=== PATIENT | male | born 1960 | race Caucasian/White ===

== ENCOUNTER 2017-02-28 18:51 | Inpatient (IN) | payer MEDICAID ==
[~2017-02-28] VITALS: Ht 182.9 cm; Wt 166.7 kg
[~2017-02-28 18:51] MED LIST: ATAZ300C; BACL10TA; BENA10TA9; EMTRTAB7; GABA600T; IBUP800T24; RITO100T; SULF-92; VALA500T33
[2017-02-28] MEDS ORDERED: MIDAZOLAM DRIP 50 mg/50mL 50 ML IV ONE ×2 (19:18→22:58)
[2017-02-28] MEDS ORDERED: ETOMIDATE (2MG/ML) 20ML VIAL IV ONE (19:18)
[2017-02-28] MEDS ORDERED: SUCCINYLCHOLINE CHLORIDE 20 MG/ML 10ML VIAL IV ONE (19:18)
[2017-02-28] MEDS: MIDAZOLAM DRIP 50 mg/50mL 50 ML IV SCH ×2 (19:38→23:21)
[2017-02-28] MEDS ORDERED: SODIUM CHLORIDE 0.9% 1,000 ML IV ONE ×2 (19:42→23:00)
[2017-02-28] MEDS ORDERED: InsuLIN R (HUMAN) 100 UNITS in SODIUM CHL 0.9% 99 ML IV SCH (19:48)
[2017-02-28] MEDS ORDERED: cefTRIAXone 1GM/10ml IVPUSH 10 ML IV ONE ×2 (20:00→21:00)
[2017-02-28] MEDS ORDERED: DEXTROSE (50%) 50ML SYRG IV PRN (20:00)
[2017-02-28 20:28] LABS: Hematocrit 39.4 % (41.0-53.0); Hemoglobin 13.2 g/dL (13.5-17.5); Mean Corpuscular Hgb Conc. 33.6 g/dL (32.0-36.0); Red Cell Distribution Width 15.1 % (11.8-14.3)
[2017-02-28 20:35] LABS: Mean Corpuscular Hemoglobin 30.9 pg (28.0-32.0); Mean Corpuscular Volume 91.9 fL (80.0-100.0); Platelet Count (auto) 138 10^3/uL (140-450); Red Blood Cells 4.28 10^6/uL (4.5-5.90)
[2017-02-28 20:55] LABS: BUN/Creatinine Ratio 22.8; Calcium 8.1 mg/dL (8.5-10.1); Magnesium 2.7 mg/dL (1.6-2.6); Potassium 4.8 mmol/L (3.5-5.1)
[2017-02-28 20:58] LABS: INR 0.95 (0.9-1.15); Prothrombin Time 10.3 sec (9.37-12.3)
[2017-02-28 21:00] LABS: Albumin 1.9 g/dL (3.4-5.0); Bilirubin, Total 4.6 mg/dL (0.2-1.0); Total Protein 7.3 g/dL (6.4-8.2)
[2017-02-28] MEDS ORDERED: IBUPROFEN 100MG/5ML ORAL SUSP 100 MG/5 ML UD GT ONE (21:00)
[2017-02-28] MEDS ORDERED: ACETAMINOPHEN 650 mg PER 20 mL UD PO ONE (21:00)
[2017-02-28 21:16] LABS: Basophils % (manual) 0 (0.0-2.0); Blast Cells 0; Eosinophils % (manual) 0 (0-7); Promyelocytes % 0; Reactive Lymphocytes 0
[2017-02-28 21:24] LABS: Lactic Acid w/Reflex 3.5 mmol/L (0.4-2.0)
[2017-02-28] MEDS: ACCU-CHEK COMFORT CURVE STRIP VI SCH ×2 (21:46→22:30)
[2017-02-28 21:52] LABS: Band Neutrophils % (manual) 34; Lymphocytes % (manual) 7 (10.0-50.0); Monocytes % (manual) 8 (0-12)
[2017-02-28 21:53] LABS: Metamyelocytes % 2; Myelocytes % 0
[2017-02-28 22:30] VITALS: BP 112/59
[2017-02-28] MEDS ORDERED: NOREPINEPHRINE 8 MG/250ML KIT 250 ML IV ONE (22:33)
[2017-02-28] MEDS: NOREPINEPHRINE 8 MG/250ML KIT 250 ML IV SCH (22:43)
[2017-02-28] MEDS ORDERED: VANCOMYCIN 1GM/250ML 250 ML IV ONE (23:00)
[2017-02-28 23:12] LABS: Amphetamine Screen, Urine NEGATIVE (NEGATIVE); Barbiturate Scree,Urine NEGATIVE (NEGATIVE); Benzodiazephine Screen, Urine NEGATIVE (NEGATIVE); Cannabinoid Screen, Urine NEGATIVE (NEGATIVE); Cocaine Screen, Urine POSITIVE (NEGATIVE); Opiate Scree,Urine NEGATIVE (NEGATIVE); Phencyclidine Screen, Urine NEGATIVE (NEGATIVE)
[2017-02-28 23:18] VITALS: BP 98/59
[2017-02-28 23:40] LABS: Urine Blood Trace /uL (Negative); Urine Specific Gravity 1.023 (1.001-1.035)
[2017-02-28 23:41] LABS: Urine WBC 2 /hpf (0 - 3)
[2017-02-28 23:42] LABS: Urine Bacteria MODERATE /hpf (None Seen)
[2017-02-28 23:44] LABS: Urine Amorphous Sediment Moderate /hpf
[2017-03-01] VITALS (55 sets, daily range): BP systolic 80–153; BP diastolic 22–99
[2017-03-01] MEDS ORDERED: diphenhdrAMINE HCL 50 MG/1 ML VL IV ONE (00:30)
[2017-03-01] MEDS ORDERED: methylPREDNISolone SOD SUCC 125 MG/2 ML VL IV ONE (00:30)
[2017-03-01] MEDS ORDERED: FUROSEMIDE 40 MG/4 ML VIAL IV ONE (02:45)
[2017-03-01 03:31] LABS: Hematocrit 41.4 % (41.0-53.0); Hemoglobin 13.7 g/dL (13.5-17.5); Mean Corpuscular Hemoglobin 30.7 pg (28.0-32.0); Mean Corpuscular Volume 92.9 fL (80.0-100.0); Platelet Count (auto) 141 10^3/uL (140-450); Red Blood Cells 4.46 10^6/uL (4.5-5.90); Red Cell Distribution Width 15.3 % (11.8-14.3)
[2017-03-01 03:42] LABS: Blast Cells 0; Eosinophils % (manual) 0 (0-7); Promyelocytes % 0; Reactive Lymphocytes 0
[2017-03-01 03:48] LABS: BUN/Creatinine Ratio 20.5; Calcium 8.2 mg/dL (8.5-10.1); Potassium 3.3 mmol/L (3.5-5.1)
[2017-03-01 04:11] LABS: Band Neutrophils % (manual) 43; Basophils % (manual) 1 (0.0-2.0); Lymphocytes % (manual) 3 (10.0-50.0); Metamyelocytes % 9; Monocytes % (manual) 1 (0-12); Myelocytes % 1
[2017-03-01] MEDS ORDERED: SUCCINYLCHOLINE CHLORIDE 20 MG/ML 10ML VIAL IV ONE (04:30)
[2017-03-01] MEDS ORDERED: ETOMIDATE (2MG/ML) 20ML VIAL IV ONE (04:30)
[2017-03-01] MEDS ORDERED: VANCOMYCIN PER PHARMACY 0 MG IV SCH (05:00)
[2017-03-01] MEDS ORDERED: POTASSIUM CHL 10% (20 MEQ/15ML) 15ml ORAL SOLN PO ONE ×2 (06:00→10:15)
[2017-03-01] MEDS: MIDAZOLAM DRIP 50 mg/50mL 50 ML IV SCH ×3 (07:01→22:00)
[2017-03-01 07:29] LABS: Lactic Acid w/Reflex 2.3 mmol/L (0.4-2.0)
[2017-03-01] MEDS: PANTOPRAZOLE 40 MG/10 ML VIAL IV SCH (10:00)
[2017-03-01] MEDS ORDERED: SODIUM CHLORIDE 0.9% 1,000 ML IV ONE (10:15)
[2017-03-01] MEDS: SODIUM CHLORIDE 0.9% 1,000 ML IV SCH ×2 (11:15→21:15)
[2017-03-01] MEDS: THIAMINE INJ 100 MG, MULTIPLE VITAMIN 10 ML, FOLIC ACID 1 MG, MAGNESIUM SULF SDV 50% 8 ... IV SCH ×5 (12:00)
[2017-03-01] MEDS ORDERED: OPTISON 3ml Vial for INJ IV ONE (13:35)
[2017-03-01] MEDS: POTASSIUM CHL 20MEQ/50ML 50 ML IV SCH ×2 (16:30→20:30)
[2017-03-01 16:38] LABS: Creatinine, Urine 266 mg/dL (30.0-125.0); Sodium Urine 13 mmol/L (40-220)
[2017-03-01] MEDS: ALBUMIN 25% 100 ML IV SCH (17:00)
[2017-03-01] MEDS: cefTRIAXone 1GM/10ml IVPUSH 10 ML IV SCH (21:00)
[2017-03-02] VITALS (92 sets, daily range): BP systolic 91–141; BP diastolic 46–90
[2017-03-02] MEDS ORDERED: VANCOMYCIN 1GM/250ML 250 ML IV SCH
[2017-03-02] MEDS ORDERED: PROPOFOL 100 ML IV ONE ×2 (00:27→05:47)
[2017-03-02] MEDS: ALBUMIN 25% 100 ML IV SCH ×3 (01:00→16:45)
[2017-03-02] MEDS: MIDAZOLAM DRIP 50 mg/50mL 50 ML IV SCH ×2 (01:30→12:07)
[2017-03-02 03:21] LABS: Hematocrit 37.6 % (41.0-53.0); Hemoglobin 12.5 g/dL (13.5-17.5); Mean Corpuscular Hemoglobin 30.3 pg (28.0-32.0); Mean Corpuscular Hgb Conc. 33.2 g/dL (32.0-36.0); Mean Corpuscular Volume 91.1 fL (80.0-100.0); Platelet Count (auto) 143 10^3/uL (140-450); Red Blood Cells 4.13 10^6/uL (4.5-5.90); Red Cell Distribution Width 15.6 % (11.8-14.3); White Blood Cell 14.7 10^3/uL (4.4-10.8)
[2017-03-02 03:33] LABS: Basophils % (manual) 0 (0.0-2.0); Blast Cells 0; Eosinophils % (manual) 0 (0-7); Myelocytes % 0; Promyelocytes % 0; Reactive Lymphocytes 0
[2017-03-02 03:44] LABS: Albumin 1.9 g/dL (3.4-5.0); BUN/Creatinine Ratio 25.6; Bilirubin, Total 2.3 mg/dL (0.2-1.0); Calcium 8.1 mg/dL (8.5-10.1); Phosphorus 4.3 mg/dL (2.5-4.90); Potassium 3.9 mmol/L (3.5-5.1); Total Protein 6.6 g/dL (6.4-8.2); Uric Acid 10.6 mg/dL (3.5-7.2)
[2017-03-02 04:35] LABS: Band Neutrophils % (manual) 13; Lymphocytes % (manual) 6 (10.0-50.0); Metamyelocytes % 1; Monocytes % (manual) 1 (0-12)
[2017-03-02 05:10] LABS: Immunoglobulin G, Serum 1338 mg/dL (700-1600); RPR Non Reactive (Non Reactive)
[2017-03-02] MEDS: PROPOFOL 100 ML IV SCH ×3 (06:00→09:31)
[2017-03-02] MEDS: PANTOPRAZOLE 40 MG/10 ML VIAL IV SCH (09:32)
[2017-03-02] MEDS: SODIUM CHLORIDE 0.9% 1,000 ML IV SCH ×2 (09:32→17:15)
[2017-03-02] MEDS: NOREPINEPHRINE 8 MG/250ML KIT 250 ML IV SCH ×2 (09:50→22:45)
[2017-03-02] MEDS ORDERED: LINEZOLID 600MG/300ML 300 ML IV ONE (10:45)
[2017-03-02] MEDS: THIAMINE INJ 100 MG, MULTIPLE VITAMIN 10 ML, FOLIC ACID 1 MG, MAGNESIUM SULF SDV 50% 8 ... IV SCH ×5 (11:32)
[2017-03-02] MEDS ORDERED: LIDOCAINE 1% HCL (LOCAL ANESTH.) INJ 20ML MDV ID ONE (15:15)
[2017-03-02] MEDS: DOPamine 1600MCG/ML D5W 250 ML IV SCH (15:56)
[2017-03-02] MEDS ORDERED: FUROSEMIDE 40 MG/4 ML VIAL ONE (17:00)
[2017-03-02] MEDS ORDERED: FUROSEMIDE 40 MG/4 ML VIAL IV ONE (17:15)
[2017-03-02] MEDS: cefTRIAXone 1GM/10ml IVPUSH 10 ML IV SCH (22:57)
[2017-03-02] MEDS: SODIUM CHLOR 0.9% PF (SALINE LOCK) 10ML VIAL IV SCH (22:58)
[2017-03-02] MEDS: LINEZOLID 600MG/300ML 300 ML IV SCH (22:58)
[2017-03-03] VITALS (97 sets, daily range): BP systolic 88–131; BP diastolic 43–79
[2017-03-03] MEDS: ALBUMIN 25% 100 ML IV SCH ×2 (01:00→11:57)
[2017-03-03 04:10] LABS: Hematocrit 33.9 % (41.0-53.0); Hemoglobin 11.5 g/dL (13.5-17.5); Mean Corpuscular Hemoglobin 31.2 pg (28.0-32.0); Mean Corpuscular Hgb Conc. 33.9 g/dL (32.0-36.0); Mean Corpuscular Volume 92.1 fL (80.0-100.0); Platelet Count (auto) 130 10^3/uL (140-450); Red Blood Cells 3.68 10^6/uL (4.5-5.90); Red Cell Distribution Width 16.2 % (11.8-14.3); White Blood Cell 16.2 10^3/uL (4.4-10.8)
[2017-03-03 04:24] LABS: Basophils % (manual) 0 (0.0-2.0); Blast Cells 0; Eosinophils % (manual) 0 (0-7); Metamyelocytes % 0; Myelocytes % 0; Promyelocytes % 0; Reactive Lymphocytes 0
[2017-03-03 04:28] LABS: Albumin 2.8 g/dL (3.4-5.0); BUN/Creatinine Ratio 31.1; Bilirubin, Total 1.6 mg/dL (0.2-1.0); Calcium 7.8 mg/dL (8.5-10.1); Potassium 3.8 mmol/L (3.5-5.1)
[2017-03-03 05:20] LABS: Band Neutrophils % (manual) 10; Lymphocytes % (manual) 2 (10.0-50.0); Monocytes % (manual) 2 (0-12)
[2017-03-03] MEDS: LINEZOLID 600MG/300ML 300 ML IV SCH ×2 (11:58→22:00)
[2017-03-03] MEDS: SODIUM CHLOR 0.9% PF (SALINE LOCK) 10ML VIAL IV SCH ×2 (11:58→22:00)
[2017-03-03] MEDS: PANTOPRAZOLE 40 MG/10 ML VIAL IV SCH (11:58)
[2017-03-03] MEDS: THIAMINE INJ 100 MG, MULTIPLE VITAMIN 10 ML, FOLIC ACID 1 MG, MAGNESIUM SULF SDV 50% 8 ... IV SCH ×5 (12:38)
[2017-03-03] MEDS: SODIUM BICARBONATE 50ML VIAL 50 ML in D5W/SOD CHL 0.45% 1,000 ML IV SCH ×2 (12:43→19:39)
[2017-03-03] MEDS: POTASSIUM CHL 20MEQ/50ML 50 ML IV SCH ×2 (12:44→17:16)
[2017-03-03] MEDS: PROPOFOL 100 ML IV SCH ×2 (16:00→22:00)
[2017-03-03] MEDS: cefTRIAXone 1GM/10ml IVPUSH 10 ML IV SCH (20:51)
[2017-03-03] MEDS: NOREPINEPHRINE 8 MG/250ML KIT 250 ML IV SCH (22:45)
[2017-03-03] MEDS: DOPamine 1600MCG/ML D5W 250 ML IV SCH (23:17)
[2017-03-04] VITALS (105 sets, daily range): BP systolic 89–146; BP diastolic 49–88
[2017-03-04] MEDS: SODIUM BICARBONATE 50ML VIAL 50 ML in D5W/SOD CHL 0.45% 1,000 ML IV SCH ×3 (00:15→22:38)
[2017-03-04] MEDS: PROPOFOL 100 ML IV SCH ×5 (01:19→15:43)
[2017-03-04 04:03] LABS: Hematocrit 35.6 % (41.0-53.0); Hemoglobin 11.9 g/dL (13.5-17.5); Mean Corpuscular Hemoglobin 30.5 pg (28.0-32.0); Mean Corpuscular Hgb Conc. 33.3 g/dL (32.0-36.0); Mean Corpuscular Volume 91.5 fL (80.0-100.0); Platelet Count (auto) 116 10^3/uL (140-450); Red Blood Cells 3.89 10^6/uL (4.5-5.90); Red Cell Distribution Width 15.5 % (11.8-14.3); White Blood Cell 12.4 10^3/uL (4.4-10.8)
[2017-03-04 04:08] LABS: Basophils % (manual) 0 (0.0-2.0); Blast Cells 0; Eosinophils % (manual) 0 (0-7); Monocytes % (manual) 0 (0-12); Promyelocytes % 0; Reactive Lymphocytes 0
[2017-03-04 04:26] LABS: Albumin 2.5 g/dL (3.4-5.0); BUN/Creatinine Ratio 37.3; Bilirubin, Total 1.4 mg/dL (0.2-1.0); Calcium 7.7 mg/dL (8.5-10.1); Potassium 3.4 mmol/L (3.5-5.1); Total Protein 6.4 g/dL (6.4-8.2)
[2017-03-04 04:49] LABS: Band Neutrophils % (manual) 8; Lymphocytes % (manual) 5 (10.0-50.0); Metamyelocytes % 3; Myelocytes % 3
[2017-03-04] MEDS: DOPamine 1600MCG/ML D5W 250 ML IV SCH (06:36)
[2017-03-04] MEDS: MIDAZOLAM DRIP 50 mg/50mL 50 ML IV SCH ×3 (06:36→15:43)
[2017-03-04 09:35] LABS: Hepatitis B Surface Antigen Negative (Negative)
[2017-03-04] MEDS: LINEZOLID 600MG/300ML 300 ML IV SCH ×2 (09:58→22:38)
[2017-03-04] MEDS: SODIUM CHLOR 0.9% PF (SALINE LOCK) 10ML VIAL IV SCH ×2 (09:58→22:42)
[2017-03-04] MEDS: PANTOPRAZOLE 40 MG/10 ML VIAL IV SCH (09:58)
[2017-03-04 11:10] LABS: Hepatitis C Antibody Positive (Negative)
[2017-03-04] MEDS: THIAMINE INJ 100 MG, MULTIPLE VITAMIN 10 ML, FOLIC ACID 1 MG, MAGNESIUM SULF SDV 50% 8 ... IV SCH ×5 (11:55)
[2017-03-04] MEDS ORDERED: POTASSIUM CHL 20MEQ/50ML 50 ML IV ONE (17:00)
[2017-03-04] MEDS: ALBUTEROL SULF 2.5 MG/0.5ML(0.5%) NEB SOLN NEB SCH (21:57)
[2017-03-04] MEDS: IPRATROPIUM BROM 0.5 MG/2.5ML INH SOL NEB SCH (21:57)
[2017-03-04] MEDS: cefTRIAXone 1GM/10ml IVPUSH 10 ML IV SCH (22:16)
[2017-03-04] MEDS: PRO-STAT 64 30ML GT SCH (22:41)
[2017-03-04] MEDS: NOREPINEPHRINE 8 MG/250ML KIT 250 ML IV SCH (22:45)
[2017-03-05] VITALS (102 sets, daily range): BP systolic 85–126; BP diastolic 45–73
[2017-03-05] MEDS: IPRATROPIUM BROM 0.5 MG/2.5ML INH SOL NEB SCH ×6 (02:18→22:36)
[2017-03-05] MEDS: ALBUTEROL SULF 2.5 MG/0.5ML(0.5%) NEB SOLN NEB SCH ×6 (02:18→22:36)
[2017-03-05] MEDS: DOPamine 1600MCG/ML D5W 250 ML IV SCH (02:54)
[2017-03-05 04:20] LABS: Hematocrit 30.9 % (41.0-53.0); Hemoglobin 10.2 g/dL (13.5-17.5); Mean Corpuscular Hemoglobin 31.3 pg (28.0-32.0); Mean Corpuscular Volume 94.9 fL (80.0-100.0); Platelet Count (auto) 103 10^3/uL (140-450); Red Blood Cells 3.25 10^6/uL (4.5-5.90)
[2017-03-05 04:58] LABS: Basophils % (manual) 0 (0.0-2.0); Blast Cells 0; Eosinophils % (manual) 0 (0-7); Promyelocytes % 0; Reactive Lymphocytes 0
[2017-03-05 06:18] LABS: Potassium 3.2 mmol/L (3.5-5.1)
[2017-03-05 06:19] LABS: BUN/Creatinine Ratio 40.4; Calcium 6.9 mg/dL (8.5-10.1); Total Protein 5.7 g/dL (6.4-8.2)
[2017-03-05 06:52] LABS: Band Neutrophils % (manual) 16; Lymphocytes % (manual) 1 (10.0-50.0); Metamyelocytes % 7; Monocytes % (manual) 3 (0-12); Myelocytes % 1
[2017-03-05] MEDS ORDERED: DEXTROSE (50%) 50ML SYRG IV PRN (07:00)
[2017-03-05] MEDS ORDERED: POTASSIUM CHLORIDE 40 MEQ, LIDOCAINE 1% (LOCAL ANESTH.) 4 ML in SODIUM CHL 0.9% 100 ML IV ONE (09:00)
[2017-03-05] MEDS: SODIUM BICARBONATE 50ML VIAL 50 ML in SOD CHL 0.45% 1,000 ML IV SCH ×2 (09:18→16:46)
[2017-03-05] MEDS: PANTOPRAZOLE 40 MG/10 ML VIAL IV SCH (09:47)
[2017-03-05] MEDS: MIDAZOLAM DRIP 50 mg/50mL 50 ML IV SCH ×2 (09:48→20:28)
[2017-03-05] MEDS: PROPOFOL 100 ML IV SCH ×3 (09:48→23:21)
[2017-03-05] MEDS: CLINDAMYCIN 300MG IV 50 ML IV SCH ×2 (09:48→16:45)
[2017-03-05] MEDS ORDERED: DULO60CA PO (09:57)
[2017-03-05] MEDS ORDERED: ASPI-492 PO (09:57)
[2017-03-05] MEDS ORDERED: BENA40TA7 PO (09:57)
[2017-03-05] MEDS ORDERED: ZOLP10TA6 PO (09:57)
[2017-03-05] MEDS ORDERED: CYCL1TAB18 PO (09:57)
[2017-03-05] MEDS ORDERED: TRAZ100T2 PO (09:57)
[2017-03-05] MEDS ORDERED: PREG150C PO (09:57)
[2017-03-05] MEDS ORDERED: MELO1TAB73 PO (09:57)
[2017-03-05] MEDS ORDERED: QUET400T12 PO (09:57)
[2017-03-05] MEDS: PRO-STAT 64 30ML GT SCH ×2 (10:00→22:46)
[2017-03-05] MEDS: SODIUM CHLOR 0.9% PF (SALINE LOCK) 10ML VIAL IV SCH ×2 (10:00→22:46)
[2017-03-05] MEDS ORDERED: CALCIUM GLUC 4.65meq/50ml D5AE 50 ML IV ONE ×2 (11:00)
[2017-03-05] MEDS: InsuLIN REG 1unit/0.01ml Soln (100units/ml) SC SCH ×2 (11:49→17:46)
[2017-03-05] MEDS: ACCU-CHEK COMFORT CURVE STRIP VI SCH ×2 (11:49→17:46)
[2017-03-05] MEDS: THIAMINE INJ 100 MG, MULTIPLE VITAMIN 10 ML, FOLIC ACID 1 MG, MAGNESIUM SULF SDV 50% 8 ... IV SCH ×5 (12:15)
[2017-03-05] MEDS: cefTRIAXone 1GM/10ml IVPUSH 10 ML IV SCH (21:46)
[2017-03-05] MEDS: NOREPINEPHRINE 8 MG/250ML KIT 250 ML IV SCH (22:45)
[2017-03-06] VITALS (90 sets, daily range): BP systolic 93–127; BP diastolic 47–79
[2017-03-06] MEDS: CLINDAMYCIN 300MG IV 50 ML IV SCH ×3 (00:21→17:15)
[2017-03-06] MEDS: ACCU-CHEK COMFORT CURVE STRIP VI SCH ×4 (00:22→17:36)
[2017-03-06] MEDS: MIDAZOLAM DRIP 50 mg/50mL 50 ML IV SCH ×4 (00:23→21:00)
[2017-03-06] MEDS: PROPOFOL 100 ML IV SCH ×7 (01:29→19:23)
[2017-03-06] MEDS: SODIUM BICARBONATE 50ML VIAL 50 ML in SOD CHL 0.45% 1,000 ML IV SCH ×2 (01:53→10:12)
[2017-03-06] MEDS: ALBUTEROL SULF 2.5 MG/0.5ML(0.5%) NEB SOLN NEB SCH ×6 (02:00→22:05)
[2017-03-06] MEDS: IPRATROPIUM BROM 0.5 MG/2.5ML INH SOL NEB SCH ×6 (02:00→22:05)
[2017-03-06] MEDS: DOPamine 1600MCG/ML D5W 250 ML IV SCH ×2 (03:55→21:00)
[2017-03-06] MEDS: InsuLIN REG 1unit/0.01ml Soln (100units/ml) SC SCH ×4 (06:00→17:36)
[2017-03-06 06:18] LABS: Hematocrit 30.9 % (41.0-53.0); Mean Corpuscular Hemoglobin 33.4 pg (28.0-32.0); Mean Corpuscular Hgb Conc. 35.6 g/dL (32.0-36.0); Mean Corpuscular Volume 93.9 fL (80.0-100.0); Platelet Count (auto) 127 10^3/uL (140-450); Red Blood Cells 3.29 10^6/uL (4.5-5.90)
[2017-03-06 06:22] LABS: Basophils % (manual) 0 (0.0-2.0); Blast Cells 0; Eosinophils % (manual) 0 (0-7); Metamyelocytes % 0; Myelocytes % 0; Promyelocytes % 0; Reactive Lymphocytes 0
[2017-03-06 06:37] LABS: Albumin 1.6 g/dL (3.4-5.0); BUN/Creatinine Ratio 43.6; Bilirubin, Total 1.8 mg/dL (0.2-1.0); Calcium 6.4 mg/dL (8.5-10.1); Potassium 3.9 mmol/L (3.5-5.1)
[2017-03-06 06:47] LABS: Total Protein 5.5 g/dL (6.4-8.2)
[2017-03-06 07:00] LABS: Band Neutrophils % (manual) 8; Lymphocytes % (manual) 1 (10.0-50.0); Monocytes % (manual) 1 (0-12)
[2017-03-06] MEDS: SODIUM CHLOR 0.9% PF (SALINE LOCK) 10ML VIAL IV SCH ×2 (09:36→22:00)
[2017-03-06] MEDS: PRO-STAT 64 30ML GT SCH ×2 (09:36→22:00)
[2017-03-06] MEDS: PANTOPRAZOLE 40 MG/10 ML VIAL IV SCH (09:36)
[2017-03-06] MEDS: THIAMINE INJ 100 MG, MULTIPLE VITAMIN 10 ML, FOLIC ACID 1 MG, MAGNESIUM SULF SDV 50% 8 ... IV SCH ×5 (13:40)
[2017-03-06] MEDS: FUROSEMIDE 20 MG/2 ML VIAL IV SCH (14:28)
[2017-03-06] MEDS: cefTRIAXone 1GM/10ml IVPUSH 10 ML IV SCH (21:00)
[2017-03-06] MEDS: NOREPINEPHRINE 8 MG/250ML KIT 250 ML IV SCH (22:45)
[2017-03-07] VITALS (81 sets, daily range): BP systolic 89–114; BP diastolic 5–70
[2017-03-07] MEDS: CLINDAMYCIN 300MG IV 50 ML IV SCH ×3 (01:26→17:12)
[2017-03-07] MEDS: PROPOFOL 100 ML IV SCH ×9 (01:27→23:45)
[2017-03-07] MEDS: ALBUTEROL SULF 2.5 MG/0.5ML(0.5%) NEB SOLN NEB SCH ×6 (01:42→22:16)
[2017-03-07] MEDS: IPRATROPIUM BROM 0.5 MG/2.5ML INH SOL NEB SCH ×6 (01:42→22:16)
[2017-03-07] MEDS: NOREPINEPHRINE 8 MG/250ML KIT 250 ML IV SCH ×2 (02:00→22:45)
[2017-03-07 05:04] LABS: Hematocrit 33.8 % (41.0-53.0); Hemoglobin 10.8 g/dL (13.5-17.5); Mean Corpuscular Hgb Conc. 31.9 g/dL (32.0-36.0); Mean Corpuscular Volume 94.3 fL (80.0-100.0); Platelet Count (auto) 142 10^3/uL (140-450); Red Blood Cells 3.58 10^6/uL (4.5-5.90); Red Cell Distribution Width 16.5 % (11.8-14.3); White Blood Cell 19.3 10^3/uL (4.4-10.8)
[2017-03-07 05:06] LABS: Basophils % (manual) 0 (0.0-2.0); Blast Cells 0; Metamyelocytes % 0; Myelocytes % 0; Promyelocytes % 0; Reactive Lymphocytes 0
[2017-03-07 05:08] LABS: Albumin 1.7 g/dL (3.4-5.0); Calcium 8.4 mg/dL (8.5-10.1); Potassium 4.1 mmol/L (3.5-5.1)
[2017-03-07 05:17] LABS: BUN/Creatinine Ratio 44.1; Bilirubin, Total 1.3 mg/dL (0.2-1.0); Total Protein 6.2 g/dL (6.4-8.2)
[2017-03-07] MEDS: ACCU-CHEK COMFORT CURVE STRIP VI SCH ×4 (06:00→17:54)
[2017-03-07] MEDS: InsuLIN REG 1unit/0.01ml Soln (100units/ml) SC SCH ×4 (06:00→17:54)
[2017-03-07 06:14] LABS: Band Neutrophils % (manual) 2; Eosinophils % (manual) 1 (0-7); Lymphocytes % (manual) 2 (10.0-50.0); Monocytes % (manual) 1 (0-12)
[2017-03-07] MEDS: MIDAZOLAM DRIP 50 mg/50mL 50 ML IV SCH ×6 (07:09→23:45)
[2017-03-07] MEDS: FUROSEMIDE 20 MG/2 ML VIAL IV SCH (09:50)
[2017-03-07] MEDS: PANTOPRAZOLE 40 MG/10 ML VIAL IV SCH (09:50)
[2017-03-07] MEDS: PRO-STAT 64 30ML GT SCH ×2 (09:51→22:00)
[2017-03-07] MEDS: SODIUM CHLOR 0.9% PF (SALINE LOCK) 10ML VIAL IV SCH ×2 (10:03→22:00)
[2017-03-07] MEDS ORDERED: SODIUM BICARBONATE 8.4 % INJ 50ML VIAL IV ONE (11:45)
[2017-03-07] MEDS: SODIUM BICARBONATE 650 MG TAB PO SCH ×2 (17:12→22:00)
[2017-03-07] MEDS: DOPamine 1600MCG/ML D5W 250 ML IV SCH (19:14)
[2017-03-07] MEDS: cefTRIAXone 1GM/10ml IVPUSH 10 ML IV SCH (20:54)
[2017-03-08] VITALS (107 sets, daily range): BP systolic 10–159; BP diastolic 47–99
[2017-03-08] MEDS: InsuLIN REG 1unit/0.01ml Soln (100units/ml) SC SCH ×4 (00:27→18:00)
[2017-03-08] MEDS: ACCU-CHEK COMFORT CURVE STRIP VI SCH ×4 (00:27→18:14)
[2017-03-08] MEDS: CLINDAMYCIN 300MG IV 50 ML IV SCH ×2 (01:16→09:19)
[2017-03-08] MEDS: ALBUTEROL SULF 2.5 MG/0.5ML(0.5%) NEB SOLN NEB SCH ×6 (02:05→22:17)
[2017-03-08] MEDS: IPRATROPIUM BROM 0.5 MG/2.5ML INH SOL NEB SCH ×6 (02:05→22:17)
[2017-03-08 05:28] LABS: Hematocrit 33.5 % (41.0-53.0); Mean Corpuscular Hemoglobin 30.5 pg (28.0-32.0); Mean Corpuscular Volume 92.6 fL (80.0-100.0); Platelet Count (auto) 197 10^3/uL (140-450); Red Blood Cells 3.62 10^6/uL (4.5-5.90); Red Cell Distribution Width 15.7 % (11.8-14.3); White Blood Cell 22.9 10^3/uL (4.4-10.8)
[2017-03-08 05:31] LABS: Albumin 1.7 g/dL (3.4-5.0); BUN/Creatinine Ratio 47.5; Bilirubin, Total 1.5 mg/dL (0.2-1.0); Calcium 8.3 mg/dL (8.5-10.1); Potassium 4.3 mmol/L (3.5-5.1)
[2017-03-08 05:48] LABS: Basophils % (manual) 0 (0.0-2.0); Blast Cells 0; Eosinophils % (manual) 0 (0-7); Metamyelocytes % 0; Monocytes % (manual) 0 (0-12); Promyelocytes % 0; Reactive Lymphocytes 0
[2017-03-08] MEDS: SODIUM BICARBONATE 650 MG TAB PO SCH ×4 (06:00→22:00)
[2017-03-08 06:19] LABS: Band Neutrophils % (manual) 13; Lymphocytes % (manual) 1 (10.0-50.0); Myelocytes % 1
[2017-03-08] MEDS: PANTOPRAZOLE 40 MG/10 ML VIAL IV SCH (09:18)
[2017-03-08] MEDS: FUROSEMIDE 20 MG/2 ML VIAL IV SCH (09:19)
[2017-03-08] MEDS: SODIUM CHLOR 0.9% PF (SALINE LOCK) 10ML VIAL IV SCH ×2 (09:19→22:00)
[2017-03-08] MEDS: PRO-STAT 64 30ML GT SCH ×2 (09:21→22:00)
[2017-03-08] MEDS: LINEZOLID 600MG/300ML 300 ML IV SCH (11:35)
[2017-03-08 11:47] LABS: Urine WBC None Seen /hpf (0 - 3)
[2017-03-08 12:01] LABS: Urine Amorphous Crystal FEW /hpf (None Seen); Urine Bacteria NONE SEEN /hpf (None Seen); Urine Blood Negative /uL (Negative); Urine Mucus FEW (None Seen); Urine Specific Gravity 1.013 (1.001-1.035)
[2017-03-08] MEDS: PROPOFOL 100 ML IV SCH ×4 (12:06→22:20)
[2017-03-08] MEDS: METOCLOPRAMIDE HCL 5MG/ml INJ 2ml VIAL IV SCH ×2 (14:51→22:00)
[2017-03-08] MEDS: DOPamine 1600MCG/ML D5W 250 ML IV SCH (14:51)
[2017-03-08] MEDS: MIDAZOLAM DRIP 50 mg/50mL 50 ML IV SCH ×2 (14:51→22:20)
[2017-03-08] MEDS: cefTRIAXone 1GM/10ml IVPUSH 10 ML IV SCH (20:40)
[2017-03-08] MEDS: NOREPINEPHRINE 8 MG/250ML KIT 250 ML IV SCH (22:45)
[2017-03-09] VITALS (107 sets, daily range): BP systolic 91–212; BP diastolic 46–75
[2017-03-09] MEDS: LINEZOLID 600MG/300ML 300 ML IV SCH ×2 (00:29→11:26)
[2017-03-09] MEDS: ACCU-CHEK COMFORT CURVE STRIP VI SCH ×4 (00:29→18:07)
[2017-03-09] MEDS: PROPOFOL 100 ML IV SCH ×7 (01:36→19:24)
[2017-03-09] MEDS: ALBUTEROL SULF 2.5 MG/0.5ML(0.5%) NEB SOLN NEB SCH ×6 (02:10→22:07)
[2017-03-09] MEDS: IPRATROPIUM BROM 0.5 MG/2.5ML INH SOL NEB SCH ×6 (02:10→22:07)
[2017-03-09] MEDS: MIDAZOLAM DRIP 50 mg/50mL 50 ML IV SCH ×3 (04:07→18:07)
[2017-03-09 04:23] LABS: Hematocrit 32.7 % (41.0-53.0); Hemoglobin 10.7 g/dL (13.5-17.5); Mean Corpuscular Hemoglobin 30.2 pg (28.0-32.0); Mean Corpuscular Hgb Conc. 32.6 g/dL (32.0-36.0); Mean Corpuscular Volume 92.5 fL (80.0-100.0); Platelet Count (auto) 206 10^3/uL (140-450); Red Blood Cells 3.54 10^6/uL (4.5-5.90); Red Cell Distribution Width 15.7 % (11.8-14.3); White Blood Cell 20.3 10^3/uL (4.4-10.8)
[2017-03-09 04:40] LABS: Basophils % (manual) 0 (0.0-2.0); Blast Cells 0; Myelocytes % 0; Promyelocytes % 0; Reactive Lymphocytes 0
[2017-03-09 04:49] LABS: Albumin 1.6 g/dL (3.4-5.0); BUN/Creatinine Ratio 46.9; Bilirubin, Total 1.3 mg/dL (0.2-1.0); Calcium 7.9 mg/dL (8.5-10.1); Potassium 4.2 mmol/L (3.5-5.1); Total Protein 6.9 g/dL (6.4-8.2)
[2017-03-09 05:06] LABS: Band Neutrophils % (manual) 5; Eosinophils % (manual) 1 (0-7); Lymphocytes % (manual) 3 (10.0-50.0); Metamyelocytes % 2; Monocytes % (manual) 1 (0-12)
[2017-03-09] MEDS: SODIUM BICARBONATE 650 MG TAB PO SCH ×4 (06:00→22:00)
[2017-03-09] MEDS: METOCLOPRAMIDE HCL 5MG/ml INJ 2ml VIAL IV SCH ×3 (06:00→22:00)
[2017-03-09] MEDS: InsuLIN REG 1unit/0.01ml Soln (100units/ml) SC SCH ×4 (06:00→18:00)
[2017-03-09] MEDS: DOPamine 1600MCG/ML D5W 250 ML IV SCH (07:46)
[2017-03-09] MEDS: PANTOPRAZOLE 40 MG/10 ML VIAL IV SCH (09:19)
[2017-03-09] MEDS: PRO-STAT 64 30ML GT SCH ×2 (09:20→22:00)
[2017-03-09] MEDS: SODIUM CHLOR 0.9% PF (SALINE LOCK) 10ML VIAL IV SCH ×2 (09:20→22:00)
[2017-03-09] MEDS: FUROSEMIDE INJECTION 250 MG in SODIUM CHL 0.9% 225 ML IV SCH (11:26)
[2017-03-09] MEDS: SPIRONOLACTONE 25 MG TAB PO SCH (11:26)
[2017-03-09 15:18] LABS: Potassium 3.6 mmol/L (3.5-5.1)
[2017-03-09] MEDS: cefTRIAXone 1GM/10ml IVPUSH 10 ML IV SCH (21:00)
[2017-03-09] MEDS: NOREPINEPHRINE 8 MG/250ML KIT 250 ML IV SCH (22:45)
[2017-03-10] VITALS (99 sets, daily range): BP systolic 83–154; BP diastolic 46–106
[2017-03-10] MEDS: ALBUTEROL SULF 2.5 MG/0.5ML(0.5%) NEB SOLN NEB SCH ×6 (02:24→22:45)
[2017-03-10] MEDS: IPRATROPIUM BROM 0.5 MG/2.5ML INH SOL NEB SCH ×6 (02:24→22:45)
[2017-03-10] MEDS: PROPOFOL 100 ML IV SCH ×8 (02:59→22:00)
[2017-03-10 03:45] LABS: Hematocrit 31.5 % (41.0-53.0); Hemoglobin 10.1 g/dL (13.5-17.5); Mean Corpuscular Hemoglobin 30.2 pg (28.0-32.0); Mean Corpuscular Hgb Conc. 32.1 g/dL (32.0-36.0); Platelet Count (auto) 185 10^3/uL (140-450); Red Blood Cells 3.35 10^6/uL (4.5-5.90); Red Cell Distribution Width 15.7 % (11.8-14.3)
[2017-03-10 03:57] LABS: Albumin 1.4 g/dL (3.4-5.0); Calcium 8.3 mg/dL (8.5-10.1); Potassium 3.9 mmol/L (3.5-5.1)
[2017-03-10 04:05] LABS: BUN/Creatinine Ratio 46.2; Bilirubin, Total 1.1 mg/dL (0.2-1.0); Total Protein 6.7 g/dL (6.4-8.2)
[2017-03-10 04:12] LABS: Basophils % (manual) 0 (0.0-2.0); Blast Cells 0; Eosinophils % (manual) 0 (0-7); Myelocytes % 0; Promyelocytes % 0; Reactive Lymphocytes 0
[2017-03-10 04:35] LABS: Band Neutrophils % (manual) 11; Lymphocytes % (manual) 2 (10.0-50.0); Metamyelocytes % 1; Monocytes % (manual) 1 (0-12)
[2017-03-10] MEDS: DOPamine 1600MCG/ML D5W 250 ML IV SCH (05:00)
[2017-03-10] MEDS: MIDAZOLAM DRIP 50 mg/50mL 50 ML IV SCH ×2 (05:00→17:36)
[2017-03-10] MEDS: SODIUM BICARBONATE 650 MG TAB PO SCH ×4 (06:00→22:00)
[2017-03-10] MEDS: METOCLOPRAMIDE HCL 5MG/ml INJ 2ml VIAL IV SCH ×3 (06:00→22:00)
[2017-03-10] MEDS: InsuLIN REG 1unit/0.01ml Soln (100units/ml) SC SCH ×4 (06:00→17:44)
[2017-03-10] MEDS: ACCU-CHEK COMFORT CURVE STRIP VI SCH ×4 (06:00→17:44)
[2017-03-10] MEDS: FUROSEMIDE INJECTION 250 MG in SODIUM CHL 0.9% 225 ML IV SCH (07:08)
[2017-03-10] MEDS ORDERED: SOD CHL 0.45% 1,000 ML IV SCH (09:15)
[2017-03-10] MEDS: HYDROCORTISONE SOD SUCC 100 MG/2ML INJ VIAL IV SCH ×3 (09:45→22:00)
[2017-03-10] MEDS: SODIUM CHLOR 0.9% PF (SALINE LOCK) 10ML VIAL IV SCH ×2 (10:00→22:00)
[2017-03-10] MEDS ORDERED: TPN PER PHARMACY 0 ML IV SCH (10:00)
[2017-03-10] MEDS: SPIRONOLACTONE 25 MG TAB PO SCH (10:00)
[2017-03-10] MEDS: PANTOPRAZOLE 40 MG/10 ML VIAL IV SCH (10:00)
[2017-03-10] MEDS: FREE WATER GT SCH ×4 (10:00→22:00)
[2017-03-10] MEDS: PRO-STAT 64 30ML GT SCH ×2 (10:00→22:00)
[2017-03-10 10:19] LABS: Magnesium 2.9 mg/dL (1.6-2.6); Phosphorus 8.5 mg/dL (2.5-4.90)
[2017-03-10] MEDS: LINEZOLID 600MG/300ML 300 ML IV SCH ×2 (12:00)
[2017-03-10] MEDS ORDERED: LIDOCAINE 1% HCL (LOCAL ANESTH.) INJ 20ML MDV ONE (13:37)
[2017-03-10] MEDS ORDERED: DOPamine 3200MCG/ML 250 ML IV SCH ×3 (16:15→16:45)
[2017-03-10] MEDS ORDERED: NOREPINEPHRINE BITARTRATE 16 MG in D5W 5% 250 ML IV SCH (16:27)
[2017-03-10] MEDS ORDERED: DEXTROSE (50%) 50ML SYRG IV SCH (18:00)
[2017-03-10] MEDS ORDERED: TPN PER PHARMACY IV NR ×6 (20:00)
[2017-03-10] MEDS: SODIUM CHL 0.9% IV SCH (20:54)
[2017-03-10] MEDS: FUROSEMIDE IV SCH (20:54)
[2017-03-10] MEDS: NOREPINEPHRINE BITARTRATE 32 MG in D5W 5% 218 ML IV SCH (21:00)
[2017-03-10] MEDS: cefTRIAXone 1GM/10ml IVPUSH 10 ML IV SCH (21:26)
[2017-03-11] VITALS (102 sets, daily range): BP systolic 79–187; BP diastolic 43–110
[2017-03-11] MEDS: LINEZOLID 600MG/300ML 300 ML IV SCH ×3 (00:10→23:54)
[2017-03-11] MEDS: ACCU-CHEK COMFORT CURVE STRIP VI SCH ×4 (00:10→17:59)
[2017-03-11] MEDS: IPRATROPIUM BROM 0.5 MG/2.5ML INH SOL NEB SCH ×6 (02:00→22:27)
[2017-03-11] MEDS: FREE WATER GT SCH ×2 (02:00→06:03)
[2017-03-11] MEDS: ALBUTEROL SULF 2.5 MG/0.5ML(0.5%) NEB SOLN NEB SCH ×6 (02:00→22:27)
[2017-03-11] MEDS: PROPOFOL 100 ML IV SCH ×9 (02:30→23:04)
[2017-03-11] MEDS: MIDAZOLAM DRIP 50 mg/50mL 50 ML IV SCH ×5 (03:42→21:20)
[2017-03-11 04:06] LABS: Basophils # (auto) 0.1 uL; Basophils % (auto) 0.5 % (0.0-2.0); Eosinophils # (auto) 0 uL; Eosinophils % (auto) 0.1 % (0.0-7.0); Hematocrit 33.8 % (41.0-53.0); Hemoglobin 10.8 g/dL (13.5-17.5); Lymphocytes # (auto) 0.5 uL; Lymphocytes % (auto) 3.5 % (10.0-50.0); Mean Corpuscular Hemoglobin 30.2 pg (28.0-32.0); Mean Corpuscular Volume 94.4 fL (80.0-100.0); Monocytes # (auto) 0.2 uL; Monocytes % (auto) 1.4 % (0.0-12.0); Neutrophils % (auto) 94.5 % (37.0-80.0); Platelet Count (auto) 222 10^3/uL (140-450); Red Blood Cells 3.58 10^6/uL (4.5-5.90); Red Cell Distribution Width 16.5 % (11.8-14.3); White Blood Cell 14.8 10^3/uL (4.4-10.8)
[2017-03-11 04:36] LABS: Magnesium 2.3 mg/dL (1.6-2.6); Phosphorus 4.3 mg/dL (2.5-4.90)
[2017-03-11 04:41] LABS: Pre Albumin 7.5 mg/dL (20.0-40.0)
[2017-03-11 05:05] LABS: Albumin 1.6 g/dL (3.4-5.0); BUN/Creatinine Ratio 41.5; Bilirubin, Total 1.1 mg/dL (0.2-1.0); Potassium 4.1 mmol/L (3.5-5.1); Total Protein 7.6 g/dL (6.4-8.2)
[2017-03-11] MEDS: InsuLIN REG 1unit/0.01ml Soln (100units/ml) SC SCH ×4 (06:03→18:09)
[2017-03-11] MEDS: HYDROCORTISONE SOD SUCC 100 MG/2ML INJ VIAL IV SCH (06:03)
[2017-03-11] MEDS: SODIUM BICARBONATE 650 MG TAB PO SCH (06:03)
[2017-03-11] MEDS: METOCLOPRAMIDE HCL 5MG/ml INJ 2ml VIAL IV SCH ×3 (06:03→22:00)
[2017-03-11] MEDS: PANTOPRAZOLE 40 MG/10 ML VIAL IV SCH (09:53)
[2017-03-11] MEDS: SODIUM CHLOR 0.9% PF (SALINE LOCK) 10ML VIAL IV SCH ×2 (09:53→22:00)
[2017-03-11] MEDS: SPIRONOLACTONE 25 MG TAB PO SCH (10:00)
[2017-03-11] MEDS: PRO-STAT 64 30ML GT SCH ×2 (10:00→22:00)
[2017-03-11] MEDS: NOREPINEPHRINE BITARTRATE 32 MG in D5W 5% 218 ML IV SCH (17:02)
[2017-03-11] MEDS: SODIUM CHL 0.9% IV SCH (18:30)
[2017-03-11] MEDS: FUROSEMIDE IV SCH (18:30)
[2017-03-11] MEDS ORDERED: TPN PER PHARMACY IV NR ×7 (20:00)
[2017-03-11] MEDS: cefTRIAXone 1GM/10ml IVPUSH 10 ML IV SCH (21:17)
[2017-03-12] VITALS (97 sets, daily range): BP systolic 74–189; BP diastolic 49–122
[2017-03-12] MEDS: InsuLIN REG 1unit/0.01ml Soln (100units/ml) SC SCH ×4 (00:02→17:48)
[2017-03-12] MEDS: ACCU-CHEK COMFORT CURVE STRIP VI SCH ×4 (00:02→17:48)
[2017-03-12] MEDS: MIDAZOLAM DRIP 50 mg/50mL 50 ML IV SCH ×5 (01:54→22:04)
[2017-03-12] MEDS: PROPOFOL 100 ML IV SCH ×7 (01:54→21:30)
[2017-03-12] MEDS: IPRATROPIUM BROM 0.5 MG/2.5ML INH SOL NEB SCH ×5 (02:13→19:12)
[2017-03-12] MEDS: ALBUTEROL SULF 2.5 MG/0.5ML(0.5%) NEB SOLN NEB SCH ×5 (02:13→19:13)
[2017-03-12 04:09] LABS: Basophils # (auto) 0.1 uL; Basophils % (auto) 0.6 % (0.0-2.0); Eosinophils # (auto) 0.1 uL; Eosinophils % (auto) 1.1 % (0.0-7.0); Hematocrit 33.2 % (41.0-53.0); Hemoglobin 10.9 g/dL (13.5-17.5); Lymphocytes # (auto) 0.6 uL; Lymphocytes % (auto) 6.6 % (10.0-50.0); Mean Corpuscular Hemoglobin 30.5 pg (28.0-32.0); Mean Corpuscular Hgb Conc. 32.8 g/dL (32.0-36.0); Mean Corpuscular Volume 93.1 fL (80.0-100.0); Monocytes # (auto) 0.2 uL; Monocytes % (auto) 2.2 % (0.0-12.0); Neutrophils # (auto) 8.8 uL; Neutrophils % (auto) 89.5 % (37.0-80.0); Nucleated Red Blood Cells % 0.1 %; Platelet Count (auto) 208 10^3/uL (140-450); Red Blood Cells 3.56 10^6/uL (4.5-5.90); Red Cell Distribution Width 15.7 % (11.8-14.3); White Blood Cell 9.9 10^3/uL (4.4-10.8)
[2017-03-12 04:35] LABS: Albumin 1.6 g/dL (3.4-5.0); BUN/Creatinine Ratio 46.7; Bilirubin, Total 0.7 mg/dL (0.2-1.0); Calcium 7.5 mg/dL (8.5-10.1); Magnesium 2.6 mg/dL (1.6-2.6); Potassium 3.5 mmol/L (3.5-5.1); Total Protein 7.2 g/dL (6.4-8.2)
[2017-03-12] MEDS: METOCLOPRAMIDE HCL 5MG/ml INJ 2ml VIAL IV SCH ×3 (06:00→21:46)
[2017-03-12] MEDS: SPIRONOLACTONE 25 MG TAB PO SCH (10:00)
[2017-03-12] MEDS: PRO-STAT 64 30ML GT SCH ×2 (10:00→21:35)
[2017-03-12] MEDS: PANTOPRAZOLE 40 MG/10 ML VIAL IV SCH (10:13)
[2017-03-12] MEDS: SODIUM CHLOR 0.9% PF (SALINE LOCK) 10ML VIAL IV SCH ×2 (10:13→21:34)
[2017-03-12] MEDS: LINEZOLID 600MG/300ML 300 ML IV SCH (11:47)
[2017-03-12] MEDS: NOREPINEPHRINE BITARTRATE 32 MG in D5W 5% 218 ML IV SCH (19:10)
[2017-03-12] MEDS ORDERED: TPN PER PHARMACY IV NR ×7 (20:00)
[2017-03-12] MEDS: FUROSEMIDE IV SCH (20:04)
[2017-03-12] MEDS: SODIUM CHL 0.9% IV SCH (20:04)
[2017-03-12] MEDS: cefTRIAXone 1GM/10ml IVPUSH 10 ML IV SCH (20:30)
[2017-03-13] VITALS (81 sets, daily range): BP systolic 92–149; BP diastolic 49–101
[2017-03-13] MEDS: LINEZOLID 600MG/300ML 300 ML IV SCH ×3 (00:06→23:39)
[2017-03-13] MEDS: PROPOFOL 100 ML IV SCH ×5 (00:07→23:39)
[2017-03-13] MEDS: ACCU-CHEK COMFORT CURVE STRIP VI SCH ×5 (00:07→23:39)
[2017-03-13] MEDS: ALBUTEROL SULF 2.5 MG/0.5ML(0.5%) NEB SOLN NEB SCH ×5 (00:17→22:10)
[2017-03-13] MEDS: IPRATROPIUM BROM 0.5 MG/2.5ML INH SOL NEB SCH ×5 (00:17→22:10)
[2017-03-13 04:26] LABS: Basophils # (auto) 0 uL; Basophils % (auto) 0.6 % (0.0-2.0); Eosinophils # (auto) 0.1 uL; Eosinophils % (auto) 1.8 % (0.0-7.0); Hematocrit 33.1 % (41.0-53.0); Lymphocytes # (auto) 0.5 uL; Mean Corpuscular Hemoglobin 31.1 pg (28.0-32.0); Mean Corpuscular Hgb Conc. 33.1 g/dL (32.0-36.0); Mean Corpuscular Volume 93.8 fL (80.0-100.0); Monocytes # (auto) 0.2 uL; Monocytes % (auto) 2.3 % (0.0-12.0); Neutrophils # (auto) 6.5 uL; Neutrophils % (auto) 88.3 % (37.0-80.0); Nucleated Red Blood Cells % 0.1 %; Platelet Count (auto) 170 10^3/uL (140-450); Red Blood Cells 3.53 10^6/uL (4.5-5.90); Red Cell Distribution Width 15.6 % (11.8-14.3); White Blood Cell 7.3 10^3/uL (4.4-10.8)
[2017-03-13 04:28] LABS: Albumin 1.5 g/dL (3.4-5.0); BUN/Creatinine Ratio 54.3; Bilirubin, Total 0.7 mg/dL (0.2-1.0); Calcium 7.1 mg/dL (8.5-10.1); Magnesium 2.3 mg/dL (1.6-2.6); Phosphorus 5.6 mg/dL (2.5-4.90); Potassium 4.3 mmol/L (3.5-5.1)
[2017-03-13] MEDS: METOCLOPRAMIDE HCL 5MG/ml INJ 2ml VIAL IV SCH ×3 (05:35→21:38)
[2017-03-13] MEDS: InsuLIN REG 1unit/0.01ml Soln (100units/ml) SC SCH ×5 (06:07→23:40)
[2017-03-13] MEDS: MIDAZOLAM DRIP 50 mg/50mL 50 ML IV SCH ×2 (07:45→22:33)
[2017-03-13] MEDS: SPIRONOLACTONE 25 MG TAB PO SCH (09:38)
[2017-03-13] MEDS: SODIUM CHLOR 0.9% PF (SALINE LOCK) 10ML VIAL IV SCH ×2 (09:38→21:38)
[2017-03-13] MEDS: PRO-STAT 64 30ML GT SCH ×2 (09:39→21:39)
[2017-03-13] MEDS: PANTOPRAZOLE 40 MG/10 ML VIAL IV SCH (09:39)
[2017-03-13] MEDS: NOREPINEPHRINE BITARTRATE 32 MG in D5W 5% 218 ML IV SCH (15:03)
[2017-03-13] MEDS: FUROSEMIDE IV SCH ×2 (16:30→21:38)
[2017-03-13] MEDS: SODIUM CHL 0.9% IV SCH ×2 (16:30→21:38)
[2017-03-13] MEDS ORDERED: TPN PER PHARMACY IV NR ×8 (20:00)
[2017-03-13] MEDS: cefTRIAXone 1GM/10ml IVPUSH 10 ML IV SCH (21:30)
[2017-03-14] VITALS (80 sets, daily range): BP systolic 71–158; BP diastolic 32–100
[2017-03-14] MEDS: IPRATROPIUM BROM 0.5 MG/2.5ML INH SOL NEB SCH ×6 (02:18→22:18)
[2017-03-14] MEDS: ALBUTEROL SULF 2.5 MG/0.5ML(0.5%) NEB SOLN NEB SCH ×6 (02:18→22:19)
[2017-03-14] MEDS: PROPOFOL 100 ML IV SCH ×4 (03:42→20:44)
[2017-03-14] MEDS: MIDAZOLAM DRIP 50 mg/50mL 50 ML IV SCH ×2 (03:43→20:45)
[2017-03-14 04:25] LABS: Basophils # (auto) 0.1 uL; Basophils % (auto) 0.8 % (0.0-2.0); Eosinophils # (auto) 0.2 uL; Eosinophils % (auto) 2.6 % (0.0-7.0); Hematocrit 30.7 % (41.0-53.0); Hemoglobin 10.8 g/dL (13.5-17.5); Lymphocytes # (auto) 0.7 uL; Lymphocytes % (auto) 10.2 % (10.0-50.0); Mean Corpuscular Hemoglobin 32.4 pg (28.0-32.0); Mean Corpuscular Volume 92.5 fL (80.0-100.0); Monocytes # (auto) 0.2 uL; Monocytes % (auto) 2.6 % (0.0-12.0); Neutrophils # (auto) 5.5 uL; Neutrophils % (auto) 83.8 % (37.0-80.0); Nucleated Red Blood Cells % 0.1 %; Platelet Count (auto) 143 10^3/uL (140-450); Red Blood Cells 3.32 10^6/uL (4.5-5.90); Red Cell Distribution Width 15.1 % (11.8-14.3); White Blood Cell 6.5 10^3/uL (4.4-10.8)
[2017-03-14 04:45] LABS: Albumin 1.6 g/dL (3.4-5.0); BUN/Creatinine Ratio 59.5; Bilirubin, Total 0.7 mg/dL (0.2-1.0); Calcium 7.4 mg/dL (8.5-10.1); Magnesium 2.1 mg/dL (1.6-2.6); Phosphorus 3.6 mg/dL (2.5-4.90); Potassium 3.3 mmol/L (3.5-5.1); Total Protein 6.7 g/dL (6.4-8.2)
[2017-03-14] MEDS: ACCU-CHEK COMFORT CURVE STRIP VI SCH ×3 (05:41→17:51)
[2017-03-14] MEDS: InsuLIN REG 1unit/0.01ml Soln (100units/ml) SC SCH ×3 (05:41→17:59)
[2017-03-14] MEDS: METOCLOPRAMIDE HCL 5MG/ml INJ 2ml VIAL IV SCH ×3 (06:30→21:44)
[2017-03-14] MEDS ORDERED: POTASSIUM CHLORIDE 40 MEQ, LIDOCAINE 1% (LOCAL ANESTH.) 4 ML in SODIUM CHL 0.9% 100 ML IV ONE (08:30)
[2017-03-14] MEDS: POTASSIUM CHL 20MEQ/100ML 100 ML IV SCH ×2 (08:50→11:01)
[2017-03-14] MEDS: SPIRONOLACTONE 25 MG TAB PO SCH (09:24)
[2017-03-14] MEDS: PANTOPRAZOLE 40 MG/10 ML VIAL IV SCH (09:24)
[2017-03-14] MEDS: SODIUM CHLOR 0.9% PF (SALINE LOCK) 10ML VIAL IV SCH ×2 (09:25→21:44)
[2017-03-14] MEDS: PRO-STAT 64 30ML GT SCH ×2 (09:25→21:44)
[2017-03-14] MEDS: LINEZOLID 600MG/300ML 300 ML IV SCH (11:32)
[2017-03-14] MEDS: NOREPINEPHRINE BITARTRATE 32 MG in D5W 5% 218 ML IV SCH (14:57)
[2017-03-14] MEDS: FREE WATER GT SCH (17:51)
[2017-03-14] MEDS ORDERED: FREE WATER GT SCH (18:00)
[2017-03-14] MEDS ORDERED: TPN PER PHARMACY IV NR ×9 (20:00)
[2017-03-14] MEDS ORDERED: FUROSEMIDE INJECTION 20 ML ONE (20:54)
[2017-03-14] MEDS: cefTRIAXone 1GM/10ml IVPUSH 10 ML IV SCH (21:00)
[2017-03-15] VITALS (68 sets, daily range): BP systolic 85–178; BP diastolic 44–149
[2017-03-15] MEDS: LINEZOLID 600MG/300ML 300 ML IV SCH ×2 (00:04→14:51)
[2017-03-15] MEDS: PROPOFOL 100 ML IV SCH ×7 (00:04→20:05)
[2017-03-15] MEDS: ALBUTEROL SULF 2.5 MG/0.5ML(0.5%) NEB SOLN NEB SCH ×6 (02:14→22:09)
[2017-03-15] MEDS: IPRATROPIUM BROM 0.5 MG/2.5ML INH SOL NEB SCH ×6 (02:14→22:09)
[2017-03-15 04:40] LABS: Albumin 1.7 g/dL (3.4-5.0); BUN/Creatinine Ratio 61.7; Bilirubin, Total 1.2 mg/dL (0.2-1.0); Calcium 7.8 mg/dL (8.5-10.1); Phosphorus 3.9 mg/dL (2.5-4.90); Potassium 3.7 mmol/L (3.5-5.1); Total Protein 7.2 g/dL (6.4-8.2)
[2017-03-15] MEDS: MIDAZOLAM DRIP 50 mg/50mL 50 ML IV SCH ×3 (05:23→14:52)
[2017-03-15] MEDS: InsuLIN REG 1unit/0.01ml Soln (100units/ml) SC SCH ×4 (06:00→18:07)
[2017-03-15] MEDS: ACCU-CHEK COMFORT CURVE STRIP VI SCH ×4 (06:00→17:42)
[2017-03-15] MEDS: METOCLOPRAMIDE HCL 5MG/ml INJ 2ml VIAL IV SCH ×3 (06:00→22:14)
[2017-03-15] MEDS: FREE WATER GT SCH ×4 (06:00→17:55)
[2017-03-15] MEDS ORDERED: ACETAMINOPHEN 650 mg PER 20 mL UD GT PRN (11:00)
[2017-03-15] MEDS ORDERED: FLUCONAZOLE 200MG/100ML 100 ML IV ONE (11:00)
[2017-03-15] MEDS: PANTOPRAZOLE 40 MG/10 ML VIAL IV SCH (11:20)
[2017-03-15] MEDS: PRO-STAT 64 30ML GT SCH ×2 (11:20→22:14)
[2017-03-15] MEDS: SODIUM CHLOR 0.9% PF (SALINE LOCK) 10ML VIAL IV SCH ×2 (11:21→22:14)
[2017-03-15] MEDS: SPIRONOLACTONE 25 MG TAB PO SCH (11:34)
[2017-03-15] MEDS: NOREPINEPHRINE BITARTRATE 32 MG in D5W 5% 218 ML IV SCH (17:39)
[2017-03-15] MEDS: SODIUM CHL 0.9% IV SCH (17:39)
[2017-03-15] MEDS: FUROSEMIDE IV SCH (17:39)
[2017-03-15] MEDS ORDERED: TPN PER PHARMACY IV NR ×9 (20:00)
[2017-03-15] MEDS: cefTRIAXone 1GM/10ml IVPUSH 10 ML IV SCH (22:14)
[2017-03-16] VITALS (62 sets, daily range): BP systolic 75–164; BP diastolic 45–89
[2017-03-16] MEDS: FREE WATER GT SCH ×4 (00:27→22:07)
[2017-03-16] MEDS: ACCU-CHEK COMFORT CURVE STRIP VI SCH ×4 (00:27→18:10)
[2017-03-16] MEDS: LINEZOLID 600MG/300ML 300 ML IV SCH ×2 (00:27→16:10)
[2017-03-16] MEDS: InsuLIN REG 1unit/0.01ml Soln (100units/ml) SC SCH ×4 (00:27→18:15)
[2017-03-16] MEDS: MIDAZOLAM DRIP 50 mg/50mL 50 ML IV SCH ×4 (00:31→21:07)
[2017-03-16] MEDS: IPRATROPIUM BROM 0.5 MG/2.5ML INH SOL NEB SCH ×6 (02:08→22:02)
[2017-03-16] MEDS: ALBUTEROL SULF 2.5 MG/0.5ML(0.5%) NEB SOLN NEB SCH ×6 (02:08→22:02)
[2017-03-16 03:57] LABS: Hematocrit 29.3 % (41.0-53.0); Hemoglobin 9.9 g/dL (13.5-17.5); Mean Corpuscular Hemoglobin 31.3 pg (28.0-32.0); Mean Corpuscular Hgb Conc. 33.6 g/dL (32.0-36.0); Mean Corpuscular Volume 93.1 fL (80.0-100.0); Platelet Count (auto) 131 10^3/uL (140-450); Red Blood Cells 3.15 10^6/uL (4.5-5.90); Red Cell Distribution Width 14.9 % (11.8-14.3); White Blood Cell 4.2 10^3/uL (4.4-10.8)
[2017-03-16 04:11] LABS: Basophils % (manual) 0 (0.0-2.0); Blast Cells 0; Promyelocytes % 0; Reactive Lymphocytes 0
[2017-03-16 04:22] LABS: Albumin 1.6 g/dL (3.4-5.0); BUN/Creatinine Ratio 67.4; Bilirubin, Total 0.6 mg/dL (0.2-1.0); Calcium 7.7 mg/dL (8.5-10.1); Magnesium 2.1 mg/dL (1.6-2.6); Phosphorus 4.7 mg/dL (2.5-4.90); Potassium 3.8 mmol/L (3.5-5.1); Pre Albumin 15.3 mg/dL (20.0-40.0); Total Protein 6.7 g/dL (6.4-8.2)
[2017-03-16 04:55] LABS: Band Neutrophils % (manual) 4; Eosinophils % (manual) 7 (0-7); Lymphocytes % (manual) 12 (10.0-50.0); Metamyelocytes % 5; Monocytes % (manual) 7 (0-12); Myelocytes % 3
[2017-03-16] MEDS: METOCLOPRAMIDE HCL 5MG/ml INJ 2ml VIAL IV SCH ×3 (06:00→22:00)
[2017-03-16 08:15] LABS: INR 0.98 (0.9-1.15); Prothrombin Time 10.7 sec (9.37-12.3)
[2017-03-16] MEDS: PROPOFOL 100 ML IV SCH ×4 (09:03→23:26)
[2017-03-16] MEDS: PRO-STAT 64 30ML GT SCH ×2 (09:35→22:00)
[2017-03-16] MEDS: SODIUM CHLOR 0.9% PF (SALINE LOCK) 10ML VIAL IV SCH ×2 (09:35→22:07)
[2017-03-16] MEDS: PANTOPRAZOLE 40 MG/10 ML VIAL IV SCH (09:35)
[2017-03-16] MEDS: FLUCONAZOLE 200MG/100ML 100 ML IV SCH (09:35)
[2017-03-16] MEDS: SPIRONOLACTONE 25 MG TAB PO SCH (09:35)
[2017-03-16] MEDS ORDERED: GLYCOPYRROLATE 0.2 MG/ML 1ML VIAL ONE (10:05)
[2017-03-16] MEDS ORDERED: LIDOCAINE 2%HCL (LOCAL ANESTH.) INJ 20ML MDV ONE ×2 (10:09→11:32)
[2017-03-16] MEDS ORDERED: SODIUM CHLORIDE LOCK 0 ML ONE (10:10)
[2017-03-16] MEDS ORDERED: MIDAZOLAM HCL 5 MG/ML-1ML VIAL ONE (10:10)
[2017-03-16] MEDS ORDERED: EPINEPHrine HCL 1 MG/1 ML AMP ONE (10:10)
[2017-03-16] MEDS ORDERED: LIDOCAINE HCL 2% TOP JELLY 5ML TOP ONE ×2 (10:10→11:32)
[2017-03-16] MEDS ORDERED: SODIUM CHLORIDE LOCK 20 ML ONE (11:31)
[2017-03-16] MEDS ORDERED: HYDROmorphone HCL 2 MG/ML VL ONE (11:33)
[2017-03-16] MEDS ORDERED: NOREPINEPHRINE 8 MG/250ML KIT 250 ML IV ONE (16:59)
[2017-03-16] MEDS: NOREPINEPHRINE BITARTRATE 32 MG in D5W 5% 218 ML IV SCH (18:00)
[2017-03-16] MEDS ORDERED: ACETYLCYSTEINE 10 %(100MG/ML) SOL 4ML NEB SCH (18:00)
[2017-03-16] MEDS: ACETYLCYSTEINE 10 %(100MG/ML) SOL 4ML NEB SCH (18:16)
[2017-03-16] MEDS ORDERED: TPN PER PHARMACY IV NR ×8 (20:00)
[2017-03-16] MEDS: cefTRIAXone 1GM/10ml IVPUSH 10 ML IV SCH (21:07)
[2017-03-17] VITALS (81 sets, daily range): BP systolic 94–140; BP diastolic 51–118
[2017-03-17] MEDS: LINEZOLID 600MG/300ML 300 ML IV SCH ×3 (00:22→23:59)
[2017-03-17] MEDS: ACCU-CHEK COMFORT CURVE STRIP VI SCH ×4 (00:22→17:39)
[2017-03-17] MEDS: InsuLIN REG 1unit/0.01ml Soln (100units/ml) SC SCH ×4 (00:23→17:39)
[2017-03-17] MEDS: PROPOFOL 100 ML IV SCH ×7 (02:00→23:11)
[2017-03-17] MEDS: FREE WATER GT SCH ×6 (02:00→23:12)
[2017-03-17] MEDS: IPRATROPIUM BROM 0.5 MG/2.5ML INH SOL NEB SCH ×6 (02:30→22:01)
[2017-03-17] MEDS: ALBUTEROL SULF 2.5 MG/0.5ML(0.5%) NEB SOLN NEB SCH ×6 (02:30→22:01)
[2017-03-17] MEDS: MIDAZOLAM DRIP 50 mg/50mL 50 ML IV SCH ×2 (04:00→23:11)
[2017-03-17 05:20] LABS: Hematocrit 31.3 % (41.0-53.0); Hemoglobin 10.2 g/dL (13.5-17.5); Mean Corpuscular Hemoglobin 30.4 pg (28.0-32.0); Mean Corpuscular Hgb Conc. 32.5 g/dL (32.0-36.0); Mean Corpuscular Volume 93.5 fL (80.0-100.0); Platelet Count (auto) 143 10^3/uL (140-450); Red Blood Cells 3.35 10^6/uL (4.5-5.90); Red Cell Distribution Width 15.2 % (11.8-14.3); White Blood Cell 4.8 10^3/uL (4.4-10.8)
[2017-03-17 05:26] LABS: Albumin 1.6 g/dL (3.4-5.0); Bilirubin, Total 0.6 mg/dL (0.2-1.0); Calcium 8.1 mg/dL (8.5-10.1); Magnesium 2.2 mg/dL (1.6-2.6); Phosphorus 3.6 mg/dL (2.5-4.90); Potassium 4.4 mmol/L (3.5-5.1); Total Protein 6.9 g/dL (6.4-8.2)
[2017-03-17 05:56] LABS: Band Neutrophils % (manual) 0
[2017-03-17 05:57] LABS: Basophils % (manual) 0 (0.0-2.0); Blast Cells 0; Metamyelocytes % 0; Myelocytes % 0; Promyelocytes % 0; Reactive Lymphocytes 0
[2017-03-17] MEDS: METOCLOPRAMIDE HCL 5MG/ml INJ 2ml VIAL IV SCH ×3 (06:00→22:00)
[2017-03-17] MEDS: ACETYLCYSTEINE 10 %(100MG/ML) SOL 4ML NEB SCH ×2 (06:00→18:15)
[2017-03-17 07:48] LABS: Eosinophils % (manual) 10 (0-7); Lymphocytes % (manual) 5 (10.0-50.0); Monocytes % (manual) 10 (0-12)
[2017-03-17] MEDS: PANTOPRAZOLE 40 MG/10 ML VIAL IV SCH (09:52)
[2017-03-17] MEDS: FLUCONAZOLE 200MG/100ML 100 ML IV SCH (09:52)
[2017-03-17] MEDS: PRO-STAT 64 30ML GT SCH ×2 (09:52→22:00)
[2017-03-17] MEDS: SODIUM CHLOR 0.9% PF (SALINE LOCK) 10ML VIAL IV SCH ×2 (09:52→23:11)
[2017-03-17] MEDS: SPIRONOLACTONE 25 MG TAB PO SCH (09:53)
[2017-03-17] MEDS: NOREPINEPHRINE BITARTRATE 32 MG in D5W 5% 218 ML IV SCH (17:02)
[2017-03-17] MEDS ORDERED: TPN PER PHARMACY IV NR ×9 (20:00)
[2017-03-17] MEDS: cefTRIAXone 1GM/10ml IVPUSH 10 ML IV SCH (20:59)
[2017-03-18] VITALS (58 sets, daily range): BP systolic 98–155; BP diastolic 56–102
[2017-03-18] MEDS: IPRATROPIUM BROM 0.5 MG/2.5ML INH SOL NEB SCH ×6 (02:15→22:03)
[2017-03-18] MEDS: ALBUTEROL SULF 2.5 MG/0.5ML(0.5%) NEB SOLN NEB SCH ×6 (02:15→22:03)
[2017-03-18] MEDS: FREE WATER GT SCH ×6 (02:37→22:37)
[2017-03-18] MEDS: PROPOFOL 100 ML IV SCH ×3 (03:01→22:13)
[2017-03-18 05:26] LABS: Albumin 1.6 g/dL (3.4-5.0); BUN/Creatinine Ratio 67.7; Calcium 8.7 mg/dL (8.5-10.1); Magnesium 2.1 mg/dL (1.6-2.6)
[2017-03-18 05:27] LABS: Hematocrit 33.4 % (41.0-53.0); Hemoglobin 10.8 g/dL (13.5-17.5); Mean Corpuscular Hemoglobin 30.4 pg (28.0-32.0); Mean Corpuscular Hgb Conc. 32.4 g/dL (32.0-36.0); Mean Corpuscular Volume 93.8 fL (80.0-100.0); Platelet Count (auto) 149 10^3/uL (140-450); Red Blood Cells 3.56 10^6/uL (4.5-5.90); Red Cell Distribution Width 15.6 % (11.8-14.3); White Blood Cell 5.2 10^3/uL (4.4-10.8)
[2017-03-18 05:29] LABS: Bilirubin, Total 0.5 mg/dL (0.2-1.0); Total Protein 6.8 g/dL (6.4-8.2)
[2017-03-18 05:33] LABS: Basophils % (manual) 0 (0.0-2.0); Blast Cells 0; Myelocytes % 0; Promyelocytes % 0; Reactive Lymphocytes 0
[2017-03-18 05:49] LABS: Phosphorus 3.2 mg/dL (2.5-4.90)
[2017-03-18] MEDS: METOCLOPRAMIDE HCL 5MG/ml INJ 2ml VIAL IV SCH ×3 (06:00→22:00)
[2017-03-18] MEDS: ACCU-CHEK COMFORT CURVE STRIP VI SCH ×4 (06:19→18:00)
[2017-03-18] MEDS: InsuLIN REG 1unit/0.01ml Soln (100units/ml) SC SCH ×4 (06:19→18:00)
[2017-03-18] MEDS: ACETYLCYSTEINE 10 %(100MG/ML) SOL 4ML NEB SCH ×3 (06:30→18:34)
[2017-03-18 06:44] LABS: Band Neutrophils % (manual) 8; Eosinophils % (manual) 5 (0-7); Lymphocytes % (manual) 20 (10.0-50.0); Metamyelocytes % 1; Monocytes % (manual) 7 (0-12)
[2017-03-18] MEDS: MIDAZOLAM DRIP 50 mg/50mL 50 ML IV SCH (07:29)
[2017-03-18] MEDS: PRO-STAT 64 30ML GT SCH ×2 (10:00→22:00)
[2017-03-18] MEDS: FLUCONAZOLE 200MG/100ML 100 ML IV SCH (10:26)
[2017-03-18] MEDS: SPIRONOLACTONE 25 MG TAB PO SCH (10:26)
[2017-03-18] MEDS: PANTOPRAZOLE 40 MG/10 ML VIAL IV SCH (10:26)
[2017-03-18] MEDS: SODIUM CHLOR 0.9% PF (SALINE LOCK) 10ML VIAL IV SCH ×2 (10:30→22:38)
[2017-03-18] MEDS: LINEZOLID 600MG/300ML 300 ML IV SCH (12:05)
[2017-03-18 12:38] LABS: INR 0.94 (0.9-1.15); Prothrombin Time 10.2 sec (9.37-12.3)
[2017-03-18] MEDS: NOREPINEPHRINE BITARTRATE 32 MG in D5W 5% 218 ML IV SCH (17:02)
[2017-03-18] MEDS ORDERED: TPN PER PHARMACY IV NR ×7 (20:00)
[2017-03-18] MEDS: cefTRIAXone 1GM/10ml IVPUSH 10 ML IV SCH (21:05)
[2017-03-19] VITALS (67 sets, daily range): BP systolic 90–152; BP diastolic 53–101
[2017-03-19] MEDS: LINEZOLID 600MG/300ML 300 ML IV SCH ×2 (01:17→12:50)
[2017-03-19] MEDS: ALBUTEROL SULF 2.5 MG/0.5ML(0.5%) NEB SOLN NEB SCH ×6 (02:03→22:06)
[2017-03-19] MEDS: IPRATROPIUM BROM 0.5 MG/2.5ML INH SOL NEB SCH ×6 (02:03→22:06)
[2017-03-19 04:13] LABS: Hematocrit 32.4 % (41.0-53.0); Hemoglobin 10.6 g/dL (13.5-17.5); Mean Corpuscular Hemoglobin 30.8 pg (28.0-32.0); Mean Corpuscular Hgb Conc. 32.6 g/dL (32.0-36.0); Mean Corpuscular Volume 94.4 fL (80.0-100.0); Platelet Count (auto) 146 10^3/uL (140-450); Red Blood Cells 3.43 10^6/uL (4.5-5.90); Red Cell Distribution Width 15.7 % (11.8-14.3); White Blood Cell 5.6 10^3/uL (4.4-10.8)
[2017-03-19 04:40] LABS: Albumin 1.6 g/dL (3.4-5.0); BUN/Creatinine Ratio 56.2; Bilirubin, Total 0.5 mg/dL (0.2-1.0); Calcium 8.2 mg/dL (8.5-10.1); Magnesium 2.1 mg/dL (1.6-2.6); Phosphorus 3.4 mg/dL (2.5-4.90); Potassium 4.6 mmol/L (3.5-5.1); Total Protein 6.8 g/dL (6.4-8.2)
[2017-03-19 05:14] LABS: Basophils % (manual) 0 (0.0-2.0); Blast Cells 0; Promyelocytes % 0; Reactive Lymphocytes 0
[2017-03-19] MEDS: FREE WATER GT SCH ×6 (05:59→22:00)
[2017-03-19] MEDS: METOCLOPRAMIDE HCL 5MG/ml INJ 2ml VIAL IV SCH ×3 (06:00→22:00)
[2017-03-19] MEDS: InsuLIN REG 1unit/0.01ml Soln (100units/ml) SC SCH ×4 (06:00→19:45)
[2017-03-19] MEDS: ACCU-CHEK COMFORT CURVE STRIP VI SCH ×4 (06:00→19:45)
[2017-03-19] MEDS: ACETYLCYSTEINE 10 %(100MG/ML) SOL 4ML NEB SCH ×2 (06:58→14:28)
[2017-03-19 06:59] LABS: Band Neutrophils % (manual) 9; Eosinophils % (manual) 11 (0-7); Lymphocytes % (manual) 14 (10.0-50.0); Metamyelocytes % 1; Monocytes % (manual) 5 (0-12); Myelocytes % 2
[2017-03-19] MEDS: PROPOFOL 100 ML IV SCH ×5 (08:30→23:00)
[2017-03-19] MEDS: MIDAZOLAM DRIP 50 mg/50mL 50 ML IV SCH ×2 (09:10→19:00)
[2017-03-19] MEDS ORDERED: fentaNYL CITRATE 100 MCG/2 ML VL ONE (09:38)
[2017-03-19] MEDS ORDERED: ROCURONIUM 10MG/ML 10ML VIAL IV ONE (09:39)
[2017-03-19] MEDS ORDERED: PROPOFOL 10 MG/ML 20 ML IV ONE (09:39)
[2017-03-19] MEDS ORDERED: MIDAZOLAM HCL 1MG/1ML-2 ML VIAL ONE (09:39)
[2017-03-19] MEDS: PRO-STAT 64 30ML GT SCH ×2 (10:00→22:00)
[2017-03-19] MEDS: SPIRONOLACTONE 25 MG TAB PO SCH (10:00)
[2017-03-19] MEDS: SODIUM CHLOR 0.9% PF (SALINE LOCK) 10ML VIAL IV SCH ×2 (11:00→22:00)
[2017-03-19] MEDS: PANTOPRAZOLE 40 MG/10 ML VIAL IV SCH (11:19)
[2017-03-19] MEDS: FLUCONAZOLE 200MG/100ML 100 ML IV SCH (11:20)
[2017-03-19] MEDS: NOREPINEPHRINE BITARTRATE 32 MG in D5W 5% 218 ML IV SCH (17:02)
[2017-03-19] MEDS ORDERED: TPN PER PHARMACY IV NR ×6 (20:00)
[2017-03-19] MEDS: cefTRIAXone 1GM/10ml IVPUSH 10 ML IV SCH (21:00)
[2017-03-20] VITALS (106 sets, daily range): BP systolic 84–165; BP diastolic 47–107
[2017-03-20] MEDS: MIDAZOLAM DRIP 50 mg/50mL 50 ML IV SCH ×2 (00:51→16:00)
[2017-03-20] MEDS: PROPOFOL 100 ML IV SCH ×3 (01:25→13:35)
[2017-03-20] MEDS: FREE WATER GT SCH ×6 (01:53→22:00)
[2017-03-20] MEDS: IPRATROPIUM BROM 0.5 MG/2.5ML INH SOL NEB SCH ×6 (02:34→22:43)
[2017-03-20] MEDS: ALBUTEROL SULF 2.5 MG/0.5ML(0.5%) NEB SOLN NEB SCH ×6 (02:34→22:43)
[2017-03-20] MEDS ORDERED: PROPOFOL 100 ML IV ONE ×2 (04:30→06:38)
[2017-03-20 05:09] LABS: Hematocrit 32.4 % (41.0-53.0); Hemoglobin 10.6 g/dL (13.5-17.5); Mean Corpuscular Hgb Conc. 32.9 g/dL (32.0-36.0); Mean Corpuscular Volume 94.4 fL (80.0-100.0); Platelet Count (auto) 150 10^3/uL (140-450); Red Blood Cells 3.43 10^6/uL (4.5-5.90); Red Cell Distribution Width 15.9 % (11.8-14.3); White Blood Cell 6.2 10^3/uL (4.4-10.8)
[2017-03-20 05:12] LABS: Band Neutrophils % (manual) 0; Basophils % (manual) 0 (0.0-2.0); Blast Cells 0; Metamyelocytes % 0; Myelocytes % 0; Promyelocytes % 0; Reactive Lymphocytes 0
[2017-03-20 05:28] LABS: Albumin 1.6 g/dL (3.4-5.0); BUN/Creatinine Ratio 53.3; Bilirubin, Total 0.6 mg/dL (0.2-1.0); Calcium 8.2 mg/dL (8.5-10.1); Phosphorus 4.2 mg/dL (2.5-4.90); Potassium 4.3 mmol/L (3.5-5.1); Total Protein 6.7 g/dL (6.4-8.2)
[2017-03-20] MEDS: ACCU-CHEK COMFORT CURVE STRIP VI SCH ×4 (06:00→18:00)
[2017-03-20] MEDS: METOCLOPRAMIDE HCL 5MG/ml INJ 2ml VIAL IV SCH (06:00)
[2017-03-20] MEDS: InsuLIN REG 1unit/0.01ml Soln (100units/ml) SC SCH ×4 (06:00→18:00)
[2017-03-20 06:26] LABS: Eosinophils % (manual) 6 (0-7); Lymphocytes % (manual) 14 (10.0-50.0); Monocytes % (manual) 5 (0-12)
[2017-03-20] MEDS: D5W/SOD CHL 0.45% 1,000 ML IV SCH (09:30)
[2017-03-20] MEDS: SODIUM CHLOR 0.9% PF (SALINE LOCK) 10ML VIAL IV SCH ×3 (10:14→22:00)
[2017-03-20] MEDS: FLUCONAZOLE 200MG/100ML 100 ML IV SCH (10:14)
[2017-03-20] MEDS: ACETAMINOPHEN 650 mg PER 20 mL UD GT PRN ×2 (10:16→23:30)
[2017-03-20] MEDS: SPIRONOLACTONE 25 MG TAB PO SCH (10:17)
[2017-03-20] MEDS: LINEZOLID 600MG/300ML 300 ML IV SCH ×2 (13:00)
[2017-03-20] MEDS: metroNIDAZOLE 500 MG TAB PO SCH ×2 (14:00→22:00)
[2017-03-20] MEDS: METOCLOPRAMIDE HCL 10 MG TAB PO SCH ×2 (14:00→22:00)
[2017-03-20] MEDS: PRO-STAT 64 30ML GT SCH ×2 (15:42→22:00)
[2017-03-20] MEDS ORDERED: TPN PER PHARMACY IV NR ×8 (20:00)
[2017-03-20 20:53] LABS: Urine Amorphous Crystal FEW /hpf (None Seen); Urine Bacteria NONE SEEN /hpf (None Seen); Urine Blood 2+ /uL (Negative); Urine Specific Gravity 1.021 (1.001-1.035); Urine WBC 1 /hpf (0 - 3)
[2017-03-20] MEDS ORDERED: LIDOCAINE 1% HCL (LOCAL ANESTH.) INJ 20ML MDV ID ONE (21:45)
[2017-03-21] VITALS (106 sets, daily range): BP systolic 114–180; BP diastolic 68–107
[2017-03-21] MEDS: PROPOFOL 100 ML IV SCH ×3 (00:43→19:50)
[2017-03-21] MEDS: FREE WATER GT SCH ×6 (02:00→22:00)
[2017-03-21] MEDS: ALBUTEROL SULF 2.5 MG/0.5ML(0.5%) NEB SOLN NEB SCH ×6 (02:13→22:00)
[2017-03-21] MEDS: IPRATROPIUM BROM 0.5 MG/2.5ML INH SOL NEB SCH ×6 (02:13→22:00)
[2017-03-21 03:56] LABS: Hemoglobin 10.2 g/dL (13.5-17.5); Mean Corpuscular Hemoglobin 30.7 pg (28.0-32.0); Mean Corpuscular Hgb Conc. 32.8 g/dL (32.0-36.0); Mean Corpuscular Volume 93.8 fL (80.0-100.0); Platelet Count (auto) 152 10^3/uL (140-450); Red Cell Distribution Width 15.5 % (11.8-14.3); White Blood Cell 5.8 10^3/uL (4.4-10.8)
[2017-03-21 04:02] LABS: Basophils % (manual) 0 (0.0-2.0); Blast Cells 0; Metamyelocytes % 0; Myelocytes % 0; Promyelocytes % 0; Reactive Lymphocytes 0
[2017-03-21 04:45] LABS: Albumin 1.5 g/dL (3.4-5.0); BUN/Creatinine Ratio 51.2; Bilirubin, Total 0.5 mg/dL (0.2-1.0); Phosphorus 3.5 mg/dL (2.5-4.90); Potassium 3.8 mmol/L (3.5-5.1); Pre Albumin 16.9 mg/dL (20.0-40.0); Total Protein 6.4 g/dL (6.4-8.2)
[2017-03-21 04:53] LABS: Band Neutrophils % (manual) 4; Eosinophils % (manual) 4 (0-7); Lymphocytes % (manual) 18 (10.0-50.0); Monocytes % (manual) 3 (0-12)
[2017-03-21] MEDS: InsuLIN REG 1unit/0.01ml Soln (100units/ml) SC SCH ×4 (06:19→18:04)
[2017-03-21] MEDS: metroNIDAZOLE 500 MG TAB PO SCH ×3 (06:19→22:00)
[2017-03-21] MEDS: METOCLOPRAMIDE HCL 10 MG TAB PO SCH ×3 (06:19→22:00)
[2017-03-21] MEDS: ACCU-CHEK COMFORT CURVE STRIP VI SCH ×4 (06:20→17:56)
[2017-03-21] MEDS: D5W/SOD CHL 0.45% 1,000 ML IV SCH (09:19)
[2017-03-21] MEDS: SODIUM CHLOR 0.9% PF (SALINE LOCK) 10ML VIAL IV SCH ×2 (09:37→22:00)
[2017-03-21] MEDS: FLUCONAZOLE 200MG/100ML 100 ML IV SCH (09:37)
[2017-03-21] MEDS: PRO-STAT 64 30ML GT SCH ×2 (09:37→22:00)
[2017-03-21] MEDS: SPIRONOLACTONE 25 MG TAB PO SCH (09:38)
[2017-03-21] MEDS ORDERED: MICAFUNGIN SODIUM 100 MG in SODIUM CHL 0.9% 100 ML IV ONE (11:15)
[2017-03-21] MEDS: LINEZOLID 600MG/300ML 300 ML IV SCH ×2 (12:17)
[2017-03-21] MEDS: ACETAMINOPHEN 650 mg PER 20 mL UD GT PRN ×2 (14:38→22:00)
[2017-03-21] MEDS ORDERED: METOPROLOL TARTRATE 50 MG TAB ONE (19:40)
[2017-03-21] MEDS: METOPROLOL TARTRATE 50 MG TAB PO SCH (19:41)
[2017-03-21] MEDS: MIDAZOLAM DRIP 50 mg/50mL 50 ML IV SCH (19:55)
[2017-03-21] MEDS ORDERED: TPN PER PHARMACY IV NR ×8 (20:00)
[2017-03-21] MEDS ORDERED: METOPROLOL TARTRATE 25 MG TAB PO SCH (22:00)
[2017-03-22] VITALS (102 sets, daily range): BP systolic 90–164; BP diastolic 50–102
[2017-03-22] MEDS: InsuLIN REG 1unit/0.01ml Soln (100units/ml) SC SCH ×4 (00:08→18:38)
[2017-03-22] MEDS: LINEZOLID 600MG/300ML 300 ML IV SCH (00:08)
[2017-03-22] MEDS: ACCU-CHEK COMFORT CURVE STRIP VI SCH ×4 (00:08→18:39)
[2017-03-22] MEDS: D5W/SOD CHL 0.45% 1,000 ML IV SCH ×2 (01:30→10:29)
[2017-03-22] MEDS: FREE WATER GT SCH ×6 (02:00→21:22)
[2017-03-22] MEDS: ALBUTEROL SULF 2.5 MG/0.5ML(0.5%) NEB SOLN NEB SCH ×6 (02:26→22:08)
[2017-03-22] MEDS: IPRATROPIUM BROM 0.5 MG/2.5ML INH SOL NEB SCH ×6 (02:26→22:08)
[2017-03-22] MEDS: PROPOFOL 100 ML IV SCH ×3 (03:15→15:01)
[2017-03-22 04:00] LABS: Hemoglobin 11.1 g/dL (13.5-17.5); Mean Corpuscular Hemoglobin 31.3 pg (28.0-32.0); Mean Corpuscular Hgb Conc. 33.6 g/dL (32.0-36.0); Platelet Count (auto) 155 10^3/uL (140-450); Red Blood Cells 3.54 10^6/uL (4.5-5.90); Red Cell Distribution Width 15.6 % (11.8-14.3); White Blood Cell 7.3 10^3/uL (4.4-10.8)
[2017-03-22 04:20] LABS: Albumin 1.4 g/dL (3.4-5.0); Bilirubin, Total 0.5 mg/dL (0.2-1.0); Calcium 7.8 mg/dL (8.5-10.1); Phosphorus 2.9 mg/dL (2.5-4.90); Potassium 3.5 mmol/L (3.5-5.1); Total Protein 6.2 g/dL (6.4-8.2)
[2017-03-22 04:33] LABS: Basophils % (manual) 0 (0.0-2.0); Blast Cells 0; Eosinophils % (manual) 0 (0-7); Metamyelocytes % 0; Promyelocytes % 0; Reactive Lymphocytes 0
[2017-03-22 05:14] LABS: Band Neutrophils % (manual) 7; Lymphocytes % (manual) 17 (10.0-50.0); Monocytes % (manual) 8 (0-12); Myelocytes % 2
[2017-03-22] MEDS: ACETAMINOPHEN 650 mg PER 20 mL UD GT PRN (06:00)
[2017-03-22] MEDS: metroNIDAZOLE 500 MG TAB PO SCH ×3 (06:12→20:59)
[2017-03-22] MEDS: METOCLOPRAMIDE HCL 10 MG TAB PO SCH ×3 (06:12→20:59)
[2017-03-22] MEDS: PRO-STAT 64 30ML GT SCH ×2 (10:00→21:28)
[2017-03-22] MEDS: HALOPERIDOL LACTATE 5 MG/ML INJ VIAL IM SCH ×2 (10:28→21:32)
[2017-03-22] MEDS: SPIRONOLACTONE 25 MG TAB PO SCH (10:28)
[2017-03-22] MEDS: SODIUM CHLOR 0.9% PF (SALINE LOCK) 10ML VIAL IV SCH ×2 (10:28→20:59)
[2017-03-22] MEDS: MICAFUNGIN SODIUM 100 MG in SODIUM CHL 0.9% 100 ML IV SCH (10:28)
[2017-03-22] MEDS: METOPROLOL TARTRATE 50 MG TAB PO SCH ×2 (10:29→21:29)
[2017-03-22] MEDS: MIDAZOLAM DRIP 50 mg/50mL 50 ML IV SCH ×2 (10:29→21:30)
[2017-03-22] MEDS ORDERED: TPN PER PHARMACY IV NR ×9 (20:00)
[2017-03-23] VITALS (97 sets, daily range): BP systolic 94–178; BP diastolic 51–107
[2017-03-23] MEDS: PROPOFOL 100 ML IV SCH ×2 (00:08→20:00)
[2017-03-23] MEDS: ACCU-CHEK COMFORT CURVE STRIP VI SCH ×4 (00:08→18:08)
[2017-03-23] MEDS: FREE WATER GT SCH ×6 (02:00→22:00)
[2017-03-23 03:50] LABS: Hematocrit 31.7 % (41.0-53.0); Hemoglobin 10.3 g/dL (13.5-17.5); Mean Corpuscular Hemoglobin 30.5 pg (28.0-32.0); Mean Corpuscular Hgb Conc. 32.7 g/dL (32.0-36.0); Mean Corpuscular Volume 93.4 fL (80.0-100.0); Platelet Count (auto) 143 10^3/uL (140-450); Red Blood Cells 3.39 10^6/uL (4.5-5.90); Red Cell Distribution Width 16.1 % (11.8-14.3); White Blood Cell 5.9 10^3/uL (4.4-10.8)
[2017-03-23 04:08] LABS: Basophils % (manual) 0 (0.0-2.0); Blast Cells 0; Eosinophils % (manual) 0 (0-7); Magnesium 1.8 mg/dL (1.6-2.6); Phosphorus 3.2 mg/dL (2.5-4.90); Promyelocytes % 0; Reactive Lymphocytes 0
[2017-03-23 04:10] LABS: Potassium 3.9 mmol/L (3.5-5.1)
[2017-03-23 04:16] LABS: Albumin 1.4 g/dL (3.4-5.0); BUN/Creatinine Ratio 65.2; Calcium 8.2 mg/dL (8.5-10.1); Total Protein 5.5 g/dL (6.4-8.2)
[2017-03-23 04:33] LABS: Bilirubin, Total 0.4 mg/dL (0.2-1.0)
[2017-03-23 05:20] LABS: Band Neutrophils % (manual) 7; Lymphocytes % (manual) 19 (10.0-50.0); Metamyelocytes % 4; Monocytes % (manual) 3 (0-12); Myelocytes % 1
[2017-03-23] MEDS: InsuLIN REG 1unit/0.01ml Soln (100units/ml) SC SCH ×4 (06:00→18:41)
[2017-03-23] MEDS: metroNIDAZOLE 500 MG TAB PO SCH (06:21)
[2017-03-23] MEDS: METOCLOPRAMIDE HCL 10 MG TAB PO SCH ×3 (06:21→22:00)
[2017-03-23] MEDS: PRO-STAT 64 30ML GT SCH ×2 (10:00→22:00)
[2017-03-23] MEDS: METOPROLOL TARTRATE 50 MG TAB PO SCH ×2 (11:00→22:00)
[2017-03-23] MEDS: SPIRONOLACTONE 25 MG TAB PO SCH (11:00)
[2017-03-23] MEDS: HALOPERIDOL LACTATE 5 MG/ML INJ VIAL IM SCH ×2 (11:00→22:00)
[2017-03-23] MEDS: SODIUM CHLOR 0.9% PF (SALINE LOCK) 10ML VIAL IV SCH ×2 (11:01→22:00)
[2017-03-23] MEDS: MICAFUNGIN SODIUM 100 MG in SODIUM CHL 0.9% 100 ML IV SCH (11:01)
[2017-03-23] MEDS: ACETAMINOPHEN 650 mg PER 20 mL UD GT PRN (11:40)
[2017-03-23] MEDS ORDERED: MIDAZOLAM HCL 1MG/1ML-2 ML VIAL IV PRN (12:15)
[2017-03-23] MEDS: D5W/SOD CHL 0.45% 1,000 ML IV SCH (17:30)
[2017-03-23] MEDS ORDERED: TPN PER PHARMACY IV NR ×8 (20:00)
[2017-03-24] VITALS (87 sets, daily range): BP systolic 108–170; BP diastolic 64–98
[2017-03-24 03:38] LABS: Hematocrit 30.7 % (41.0-53.0); Hemoglobin 10.1 g/dL (13.5-17.5); Mean Corpuscular Hemoglobin 30.5 pg (28.0-32.0); Mean Corpuscular Volume 92.6 fL (80.0-100.0); Platelet Count (auto) 153 10^3/uL (140-450); Red Blood Cells 3.31 10^6/uL (4.5-5.90); Red Cell Distribution Width 15.9 % (11.8-14.3); White Blood Cell 5.9 10^3/uL (4.4-10.8)
[2017-03-24 03:52] LABS: Basophils % (manual) 0 (0.0-2.0); Blast Cells 0; Promyelocytes % 0; Reactive Lymphocytes 0
[2017-03-24 03:59] LABS: Albumin 1.4 g/dL (3.4-5.0); Calcium 8.3 mg/dL (8.5-10.1); Magnesium 1.7 mg/dL (1.6-2.6); Potassium 3.7 mmol/L (3.5-5.1)
[2017-03-24 04:01] LABS: BUN/Creatinine Ratio 61.3
[2017-03-24 04:03] LABS: Bilirubin, Total 0.4 mg/dL (0.2-1.0)
[2017-03-24 04:36] LABS: Phosphorus 2.9 mg/dL (2.5-4.90)
[2017-03-24] MEDS: FREE WATER GT SCH ×5 (06:00→21:44)
[2017-03-24] MEDS: METOCLOPRAMIDE HCL 10 MG TAB PO SCH ×3 (06:00→21:43)
[2017-03-24] MEDS: InsuLIN REG 1unit/0.01ml Soln (100units/ml) SC SCH ×4 (06:00→17:36)
[2017-03-24] MEDS: ACCU-CHEK COMFORT CURVE STRIP VI SCH ×4 (06:00→17:36)
[2017-03-24 06:58] LABS: Band Neutrophils % (manual) 12; Eosinophils % (manual) 1 (0-7); Lymphocytes % (manual) 15 (10.0-50.0); Metamyelocytes % 3; Monocytes % (manual) 9 (0-12); Myelocytes % 4
[2017-03-24] MEDS ORDERED: HYDROmorphone HCL 2 MG/ML VL ONE ×2 (07:56→09:59)
[2017-03-24] MEDS ORDERED: fentaNYL CITRATE 0 ML ONE (07:56)
[2017-03-24] MEDS ORDERED: fentaNYL CITRATE 100 MCG/2 ML VL ONE (07:56)
[2017-03-24] MEDS ORDERED: ETOMIDATE (2MG/ML) 20ML VIAL IV ONE (07:57)
[2017-03-24] MEDS ORDERED: ROCURONIUM 10MG/ML 10ML VIAL IV ONE (07:57)
[2017-03-24] MEDS ORDERED: MIDAZOLAM HCL 1MG/1ML-2 ML VIAL ONE (07:57)
[2017-03-24] MEDS ORDERED: ceFAZolin 1GM/50ML 50 ML IV ONE (08:28)
[2017-03-24] MEDS ORDERED: metroNIDAZOLE 500MG/100ML 100 ML IV ONE (08:28)
[2017-03-24] MEDS: PRO-STAT 64 30ML GT SCH ×2 (10:00→21:44)
[2017-03-24] MEDS: SODIUM CHLOR 0.9% PF (SALINE LOCK) 10ML VIAL IV SCH ×2 (10:00→21:43)
[2017-03-24] MEDS: HALOPERIDOL LACTATE 5 MG/ML INJ VIAL IM SCH ×2 (10:37→21:42)
[2017-03-24] MEDS: MICAFUNGIN SODIUM 100 MG in SODIUM CHL 0.9% 100 ML IV SCH (10:39)
[2017-03-24] MEDS: SPIRONOLACTONE 25 MG TAB PO SCH (10:39)
[2017-03-24] MEDS: MIDAZOLAM DRIP 50 mg/50mL 50 ML IV SCH (11:02)
[2017-03-24 12:34] LABS: Folate (Folic Acid) 9.64 ng/mL (5.38-24)
[2017-03-24] MEDS: D5W/SOD CHL 0.45% 1,000 ML IV SCH (12:47)
[2017-03-24] MEDS ORDERED: TPN PER PHARMACY IV NR ×8 (20:00)
[2017-03-24] MEDS: PROPOFOL 100 ML IV SCH (20:08)
[2017-03-24] MEDS: METOPROLOL TARTRATE 50 MG TAB PO SCH (21:44)
[2017-03-25] VITALS (69 sets, daily range): BP systolic 105–162; BP diastolic 59–100
[2017-03-25] MEDS: ACCU-CHEK COMFORT CURVE STRIP VI SCH ×3 (00:31→11:37)
[2017-03-25] MEDS: PROPOFOL 100 ML IV SCH ×4 (01:09→18:14)
[2017-03-25] MEDS: FREE WATER GT SCH ×6 (02:00→22:00)
[2017-03-25 03:47] LABS: Hematocrit 29.3 % (41.0-53.0); Mean Corpuscular Hgb Conc. 34.2 g/dL (32.0-36.0); Mean Corpuscular Volume 90.9 fL (80.0-100.0); Platelet Count (auto) 170 10^3/uL (140-450); Red Blood Cells 3.22 10^6/uL (4.5-5.90); Red Cell Distribution Width 15.8 % (11.8-14.3); White Blood Cell 6.1 10^3/uL (4.4-10.8)
[2017-03-25 03:53] LABS: Blast Cells 0; Promyelocytes % 0; Reactive Lymphocytes 0
[2017-03-25 04:13] LABS: Calcium 8.3 mg/dL (8.5-10.1)
[2017-03-25 04:14] LABS: Albumin 1.5 g/dL (3.4-5.0); Bilirubin, Total 0.4 mg/dL (0.2-1.0); Magnesium 2.1 mg/dL (1.6-2.6); Phosphorus 3.7 mg/dL (2.5-4.90); Pre Albumin 15.4 mg/dL (20.0-40.0); Total Protein 5.9 g/dL (6.4-8.2)
[2017-03-25 05:19] LABS: Band Neutrophils % (manual) 9; Basophils % (manual) 1 (0.0-2.0); Eosinophils % (manual) 2 (0-7); Lymphocytes % (manual) 17 (10.0-50.0); Metamyelocytes % 4; Monocytes % (manual) 9 (0-12); Myelocytes % 2
[2017-03-25] MEDS: InsuLIN REG 1unit/0.01ml Soln (100units/ml) SC SCH ×3 (06:30→11:37)
[2017-03-25] MEDS: METOCLOPRAMIDE HCL 10 MG TAB PO SCH ×3 (06:31→22:00)
[2017-03-25] MEDS: D5W/SOD CHL 0.45% 1,000 ML IV SCH (09:30)
[2017-03-25] MEDS ORDERED: CHLORHEXIDINE 4% TOPICAL soln 237ML TOP ONE (09:57)
[2017-03-25] MEDS ORDERED: CHLORHEXIDINE 0.12% ORAL rinse 473ML MT ONE (09:58)
[2017-03-25] MEDS: PRO-STAT 64 30ML GT SCH ×2 (10:01→22:00)
[2017-03-25] MEDS: SODIUM CHLOR 0.9% PF (SALINE LOCK) 10ML VIAL IV SCH ×2 (10:03→22:00)
[2017-03-25] MEDS: HALOPERIDOL LACTATE 5 MG/ML INJ VIAL IM SCH ×2 (10:03→23:22)
[2017-03-25] MEDS: SPIRONOLACTONE 25 MG TAB PO SCH (10:04)
[2017-03-25] MEDS: METOPROLOL TARTRATE 50 MG TAB PO SCH (10:04)
[2017-03-25] MEDS: MICAFUNGIN SODIUM 100 MG in SODIUM CHL 0.9% 100 ML IV SCH (10:11)
[2017-03-25] MEDS: MIDAZOLAM DRIP 50 mg/50mL 50 ML IV SCH (11:14)
[2017-03-25] MEDS: LABETALOL HCL 5 MG/ML ML 20ML VIAL IV PRN (14:40)
[2017-03-25] MEDS ORDERED: [UNRECOGNIZED DRUG - OTHER] IV NR ×8 (20:00)
[2017-03-25] MEDS ORDERED: MAGNESIUM SULF IV NR ×8 (20:00)
[2017-03-25] MEDS ORDERED: POTASSIUM ACETATE IV NR ×8 (20:00)
[2017-03-25] MEDS ORDERED: POTASSIUM PHOSPHATE IV NR ×8 (20:00)
[2017-03-25] MEDS: METOPROLOL TARTRATE 25 MG TAB PO SCH (23:21)
[2017-03-26] VITALS (83 sets, daily range): BP systolic 109–168; BP diastolic 52–107
[2017-03-26] MEDS: FREE WATER GT SCH ×6 (02:00→21:56)
[2017-03-26 03:55] LABS: Hematocrit 29.8 % (41.0-53.0); Hemoglobin 9.9 g/dL (13.5-17.5); Mean Corpuscular Hemoglobin 30.8 pg (28.0-32.0); Mean Corpuscular Hgb Conc. 33.3 g/dL (32.0-36.0); Mean Corpuscular Volume 92.4 fL (80.0-100.0); Platelet Count (auto) 169 10^3/uL (140-450); Red Blood Cells 3.23 10^6/uL (4.5-5.90); Red Cell Distribution Width 15.7 % (11.8-14.3); White Blood Cell 7.6 10^3/uL (4.4-10.8)
[2017-03-26 04:20] LABS: Albumin 1.6 g/dL (3.4-5.0); BUN/Creatinine Ratio 49.2; Bilirubin, Total 0.5 mg/dL (0.2-1.0); Calcium 8.3 mg/dL (8.5-10.1); Magnesium 2.1 mg/dL (1.6-2.6); Phosphorus 4.9 mg/dL (2.5-4.90); Potassium 4.8 mmol/L (3.5-5.1); Total Protein 6.2 g/dL (6.4-8.2)
[2017-03-26 04:57] LABS: Basophils % (manual) 0 (0.0-2.0); Blast Cells 0; Metamyelocytes % 0; Myelocytes % 0; Promyelocytes % 0; Reactive Lymphocytes 0
[2017-03-26] MEDS: METOCLOPRAMIDE HCL 10 MG TAB PO SCH ×3 (06:00→21:54)
[2017-03-26 07:45] LABS: Band Neutrophils % (manual) 6; Eosinophils % (manual) 1 (0-7); Lymphocytes % (manual) 9 (10.0-50.0); Monocytes % (manual) 9 (0-12)
[2017-03-26] MEDS: Fibersource Hn 1 Liter GT SCH (07:49)
[2017-03-26] MEDS ORDERED: FUROSEMIDE 40 MG/4 ML VIAL IV ONE (08:30)
[2017-03-26] MEDS: PRO-STAT 64 30ML GT SCH ×2 (10:00→22:00)
[2017-03-26] MEDS: SODIUM CHLOR 0.9% PF (SALINE LOCK) 10ML VIAL IV SCH ×2 (10:00→21:54)
[2017-03-26] MEDS ORDERED: FUROSEMIDE 40 MG/4 ML VIAL ONE (10:13)
[2017-03-26] MEDS: SPIRONOLACTONE 25 MG TAB PO SCH (10:16)
[2017-03-26] MEDS: METOPROLOL TARTRATE 25 MG TAB PO SCH ×2 (10:17→21:55)
[2017-03-26] MEDS: HALOPERIDOL LACTATE 5 MG/ML INJ VIAL IM SCH ×2 (10:23→21:54)
[2017-03-26] MEDS: MICAFUNGIN SODIUM 100 MG in SODIUM CHL 0.9% 100 ML IV SCH (10:34)
[2017-03-26] MEDS: MIDAZOLAM DRIP 50 mg/50mL 50 ML IV SCH (11:14)
[2017-03-26] MEDS: PROPOFOL 100 ML IV SCH ×2 (13:43→23:50)
[2017-03-27] VITALS (105 sets, daily range): BP systolic 78–177; BP diastolic 49–111
[2017-03-27] MEDS: ACETAMINOPHEN 650 mg PER 20 mL UD GT PRN ×4 (00:37→20:10)
[2017-03-27] MEDS: FREE WATER GT SCH ×6 (02:14→22:00)
[2017-03-27 04:41] LABS: Hematocrit 28.3 % (41.0-53.0); Hemoglobin 9.3 g/dL (13.5-17.5); Mean Corpuscular Hemoglobin 30.9 pg (28.0-32.0); Mean Corpuscular Volume 93.5 fL (80.0-100.0); Platelet Count (auto) 161 10^3/uL (140-450); Red Blood Cells 3.02 10^6/uL (4.5-5.90); Red Cell Distribution Width 16.4 % (11.8-14.3); White Blood Cell 6.8 10^3/uL (4.4-10.8)
[2017-03-27 04:48] LABS: Basophils % (manual) 0 (0.0-2.0); Blast Cells 0; Metamyelocytes % 0; Myelocytes % 0; Promyelocytes % 0; Reactive Lymphocytes 0
[2017-03-27 04:56] LABS: Albumin 1.6 g/dL (3.4-5.0); BUN/Creatinine Ratio 43.3; Calcium 8.4 mg/dL (8.5-10.1); Potassium 4.5 mmol/L (3.5-5.1)
[2017-03-27 04:58] LABS: Bilirubin, Total 0.5 mg/dL (0.2-1.0); Total Protein 5.9 g/dL (6.4-8.2)
[2017-03-27] MEDS: PROPOFOL 100 ML IV SCH ×6 (05:08→19:50)
[2017-03-27] MEDS: METOCLOPRAMIDE HCL 10 MG TAB PO SCH ×3 (05:34→22:47)
[2017-03-27] MEDS: PRO-STAT 64 30ML GT SCH ×2 (10:03→23:08)
[2017-03-27] MEDS: HALOPERIDOL LACTATE 5 MG/ML INJ VIAL IM SCH ×2 (10:03→22:56)
[2017-03-27] MEDS: SODIUM CHLOR 0.9% PF (SALINE LOCK) 10ML VIAL IV SCH ×2 (10:04→22:00)
[2017-03-27] MEDS: METOPROLOL TARTRATE 25 MG TAB PO SCH ×2 (10:04→22:00)
[2017-03-27] MEDS: SPIRONOLACTONE 25 MG TAB PO SCH (10:04)
[2017-03-27] MEDS: MICAFUNGIN SODIUM 100 MG in SODIUM CHL 0.9% 100 ML IV SCH (10:08)
[2017-03-27 10:38] LABS: Band Neutrophils % (manual) 8; Eosinophils % (manual) 4 (0-7); Lymphocytes % (manual) 11 (10.0-50.0); Monocytes % (manual) 8 (0-12)
[2017-03-27] MEDS: MIDAZOLAM DRIP 50 mg/50mL 50 ML IV SCH ×2 (11:14→22:37)
[2017-03-27] MEDS: Fibersource Hn 1 Liter GT SCH (18:07)
[2017-03-27] MEDS: LABETALOL HCL 5 MG/ML ML 20ML VIAL IV PRN ×2 (18:17→19:58)
[2017-03-28] VITALS (106 sets, daily range): BP systolic 72–172; BP diastolic 27–102
[2017-03-28] MEDS: FREE WATER GT SCH ×6 (02:00→22:00)
[2017-03-28] MEDS: PROPOFOL 100 ML IV SCH ×9 (03:36→22:50)
[2017-03-28 04:50] LABS: Hematocrit 29.9 % (41.0-53.0); Hemoglobin 9.7 g/dL (13.5-17.5); Mean Corpuscular Hemoglobin 30.4 pg (28.0-32.0); Mean Corpuscular Hgb Conc. 32.5 g/dL (32.0-36.0); Mean Corpuscular Volume 93.4 fL (80.0-100.0); Platelet Count (auto) 173 10^3/uL (140-450); Red Cell Distribution Width 16.9 % (11.8-14.3)
[2017-03-28 05:01] LABS: Albumin 1.6 g/dL (3.4-5.0); BUN/Creatinine Ratio 44.8; Calcium 8.4 mg/dL (8.5-10.1)
[2017-03-28 05:03] LABS: Bilirubin, Total 0.5 mg/dL (0.2-1.0); Total Protein 5.9 g/dL (6.4-8.2)
[2017-03-28 05:17] LABS: Basophils % (manual) 0 (0.0-2.0); Blast Cells 0; Metamyelocytes % 0; Myelocytes % 0; Promyelocytes % 0; Reactive Lymphocytes 0
[2017-03-28] MEDS: METOCLOPRAMIDE HCL 10 MG TAB PO SCH ×3 (06:43→22:00)
[2017-03-28 07:03] LABS: Band Neutrophils % (manual) 6; Eosinophils % (manual) 1 (0-7); Lymphocytes % (manual) 13 (10.0-50.0); Monocytes % (manual) 9 (0-12)
[2017-03-28] MEDS: PRO-STAT 64 30ML GT SCH ×2 (09:54→22:00)
[2017-03-28] MEDS: METOPROLOL TARTRATE 25 MG TAB PO SCH ×2 (09:55→22:00)
[2017-03-28] MEDS: MICAFUNGIN SODIUM 100 MG in SODIUM CHL 0.9% 100 ML IV SCH (09:55)
[2017-03-28] MEDS: HALOPERIDOL LACTATE 5 MG/ML INJ VIAL IM SCH ×2 (09:55→22:00)
[2017-03-28] MEDS: SODIUM CHLOR 0.9% PF (SALINE LOCK) 10ML VIAL IV SCH ×2 (09:55→22:00)
[2017-03-28] MEDS: MIDAZOLAM DRIP 50 mg/50mL 50 ML IV SCH (11:14)
[2017-03-28] MEDS ORDERED: VANCOMYCIN PER PHARMACY 0 MG IV SCH (15:45)
[2017-03-28] MEDS: FLUCONAZOLE 200MG/100ML 100 ML IV SCH (16:00)
[2017-03-28] MEDS: ACYCLOVIR SOD 50MG/ML 800 MG in SODIUM CHL 0.9% 250 ML IV SCH ×2 (17:00→23:13)
[2017-03-28] MEDS: VANCOMYCIN 1,500 MG in D5W 5% 250 ML IV SCH (18:10)
[2017-03-29] VITALS (73 sets, daily range): BP systolic 89–165; BP diastolic 6–83
[2017-03-29] MEDS: VANCOMYCIN 1,500 MG in D5W 5% 250 ML IV SCH ×3 (01:00→17:52)
[2017-03-29] MEDS: FREE WATER GT SCH ×6 (02:00→22:18)
[2017-03-29 03:57] LABS: Hematocrit 26.6 % (41.0-53.0); Hemoglobin 8.9 g/dL (13.5-17.5); Mean Corpuscular Hgb Conc. 33.6 g/dL (32.0-36.0); Mean Corpuscular Volume 92.3 fL (80.0-100.0); Platelet Count (auto) 161 10^3/uL (140-450); Red Blood Cells 2.88 10^6/uL (4.5-5.90); Red Cell Distribution Width 16.7 % (11.8-14.3); White Blood Cell 5.9 10^3/uL (4.4-10.8)
[2017-03-29 04:10] LABS: Basophils % (manual) 0 (0.0-2.0); Blast Cells 0; Promyelocytes % 0; Reactive Lymphocytes 0
[2017-03-29 04:17] LABS: Albumin 1.5 g/dL (3.4-5.0); Calcium 8.3 mg/dL (8.5-10.1); Potassium 3.8 mmol/L (3.5-5.1)
[2017-03-29 04:20] LABS: BUN/Creatinine Ratio 47.2
[2017-03-29 04:23] LABS: Bilirubin, Total 0.5 mg/dL (0.2-1.0); Total Protein 5.5 g/dL (6.4-8.2)
[2017-03-29 05:07] LABS: Band Neutrophils % (manual) 12; Eosinophils % (manual) 3 (0-7); Lymphocytes % (manual) 10 (10.0-50.0); Metamyelocytes % 8; Monocytes % (manual) 8 (0-12); Myelocytes % 3
[2017-03-29] MEDS: METOCLOPRAMIDE HCL 10 MG TAB PO SCH ×3 (06:03→22:17)
[2017-03-29] MEDS: PROPOFOL 100 ML IV SCH ×5 (08:36→22:16)
[2017-03-29] MEDS: HALOPERIDOL LACTATE 5 MG/ML INJ VIAL IM SCH ×2 (10:32→22:19)
[2017-03-29] MEDS: PRO-STAT 64 30ML GT SCH ×2 (10:32→17:52)
[2017-03-29] MEDS: SODIUM CHLOR 0.9% PF (SALINE LOCK) 10ML VIAL IV SCH ×2 (10:32→22:17)
[2017-03-29] MEDS: D5W 5% IV SCH ×2 (10:37→19:08)
[2017-03-29] MEDS: ACYCLOVIR SOD IV SCH ×2 (10:37→19:08)
[2017-03-29] MEDS: METOPROLOL TARTRATE 25 MG TAB PO SCH ×2 (10:44→22:17)
[2017-03-29] MEDS: MIDAZOLAM DRIP 50 mg/50mL 50 ML IV SCH (11:14)
[2017-03-29] MEDS: FLUCONAZOLE 200MG/100ML 100 ML IV SCH ×4 (11:43→16:58)
[2017-03-30] VITALS (61 sets, daily range): BP systolic 97–146; BP diastolic 53–75
[2017-03-30] MEDS: PROPOFOL 100 ML IV SCH ×5 (00:22→22:00)
[2017-03-30] MEDS: VANCOMYCIN 1,500 MG in D5W 5% 250 ML IV SCH (01:07)
[2017-03-30] MEDS: ACYCLOVIR SOD IV SCH ×3 (01:07→18:04)
[2017-03-30] MEDS: D5W 5% IV SCH ×3 (01:07→18:04)
[2017-03-30] MEDS: FREE WATER GT SCH ×6 (02:00→21:36)
[2017-03-30 03:56] LABS: Hematocrit 26.9 % (41.0-53.0); Hemoglobin 8.9 g/dL (13.5-17.5); Mean Corpuscular Hemoglobin 30.6 pg (28.0-32.0); Mean Corpuscular Hgb Conc. 33.1 g/dL (32.0-36.0); Mean Corpuscular Volume 92.5 fL (80.0-100.0); Platelet Count (auto) 160 10^3/uL (140-450); Red Blood Cells 2.91 10^6/uL (4.5-5.90); Red Cell Distribution Width 16.2 % (11.8-14.3)
[2017-03-30 04:12] LABS: Albumin 1.4 g/dL (3.4-5.0); BUN/Creatinine Ratio 42.9; Calcium 8.2 mg/dL (8.5-10.1); Potassium 3.5 mmol/L (3.5-5.1)
[2017-03-30 04:15] LABS: Bilirubin, Total 0.6 mg/dL (0.2-1.0); Total Protein 5.3 g/dL (6.4-8.2)
[2017-03-30 04:16] LABS: Basophils % (manual) 0 (0.0-2.0); Blast Cells 0; Promyelocytes % 0; Reactive Lymphocytes 0
[2017-03-30 05:12] LABS: Band Neutrophils % (manual) 19; Eosinophils % (manual) 2 (0-7); Lymphocytes % (manual) 13 (10.0-50.0); Metamyelocytes % 8; Monocytes % (manual) 5 (0-12); Myelocytes % 6
[2017-03-30] MEDS: Fibersource Hn 1 Liter GT SCH (06:24)
[2017-03-30] MEDS: METOCLOPRAMIDE HCL 10 MG TAB PO SCH ×3 (06:24→21:38)
[2017-03-30] MEDS: SODIUM CHLOR 0.9% PF (SALINE LOCK) 10ML VIAL IV SCH ×2 (09:52→21:37)
[2017-03-30] MEDS: PRO-STAT 64 30ML GT SCH ×2 (09:52→21:36)
[2017-03-30] MEDS: HALOPERIDOL LACTATE 5 MG/ML INJ VIAL IM SCH ×2 (09:52→21:37)
[2017-03-30] MEDS: METOPROLOL TARTRATE 25 MG TAB PO SCH ×2 (09:59→21:38)
[2017-03-30] MEDS: MIDAZOLAM DRIP 50 mg/50mL 50 ML IV SCH ×2 (11:14→18:54)
[2017-03-30] MEDS: VANCOMYCIN 1,250 MG in D5W 5% 250 ML IV SCH ×2 (11:19→19:00)
[2017-03-30] MEDS: FLUCONAZOLE 200MG/100ML 100 ML IV SCH ×4 (12:21→15:58)
[2017-03-30] MEDS: ACETAMINOPHEN 650 mg PER 20 mL UD GT PRN (22:30)
[2017-03-31] VITALS (59 sets, daily range): BP systolic 87–132; BP diastolic 43–80
[2017-03-31] MEDS: PROPOFOL 100 ML IV SCH ×9 (00:18→21:46)
[2017-03-31] MEDS: MIDAZOLAM DRIP 50 mg/50mL 50 ML IV SCH ×3 (00:19→21:49)
[2017-03-31] MEDS: D5W 5% IV SCH ×3 (01:03→17:32)
[2017-03-31] MEDS: ACYCLOVIR SOD IV SCH ×3 (01:03→17:32)
[2017-03-31] MEDS: FREE WATER GT SCH ×6 (02:00→22:00)
[2017-03-31] MEDS: VANCOMYCIN 1,250 MG in D5W 5% 250 ML IV SCH (03:00)
[2017-03-31 04:18] LABS: Hematocrit 26.6 % (41.0-53.0); Hemoglobin 8.8 g/dL (13.5-17.5); Mean Corpuscular Hemoglobin 31.1 pg (28.0-32.0); Mean Corpuscular Hgb Conc. 33.1 g/dL (32.0-36.0); Mean Corpuscular Volume 93.8 fL (80.0-100.0); Platelet Count (auto) 161 10^3/uL (140-450); Red Blood Cells 2.83 10^6/uL (4.5-5.90); Red Cell Distribution Width 16.7 % (11.8-14.3); White Blood Cell 7.4 10^3/uL (4.4-10.8)
[2017-03-31 04:27] LABS: Albumin 1.3 g/dL (3.4-5.0); BUN/Creatinine Ratio 35.1; Bilirubin, Total 0.5 mg/dL (0.2-1.0); Calcium 7.8 mg/dL (8.5-10.1); Potassium 3.6 mmol/L (3.5-5.1); Total Protein 5.2 g/dL (6.4-8.2)
[2017-03-31 04:39] LABS: Basophils % (manual) 0 (0.0-2.0); Blast Cells 0; Reactive Lymphocytes 0
[2017-03-31 05:24] LABS: Band Neutrophils % (manual) 26; Eosinophils % (manual) 2 (0-7); Lymphocytes % (manual) 8 (10.0-50.0); Metamyelocytes % 10; Monocytes % (manual) 4 (0-12); Myelocytes % 2; Promyelocytes % 3
[2017-03-31] MEDS: METOCLOPRAMIDE HCL 10 MG TAB PO SCH ×3 (06:29→21:46)
[2017-03-31] MEDS ORDERED: FUROSEMIDE 40 MG/4 ML VIAL IV ONE (09:00)
[2017-03-31] MEDS: HALOPERIDOL LACTATE 5 MG/ML INJ VIAL IM SCH ×2 (09:04→21:47)
[2017-03-31] MEDS: PRO-STAT 64 30ML GT SCH ×2 (09:04→17:23)
[2017-03-31] MEDS: SODIUM CHLOR 0.9% PF (SALINE LOCK) 10ML VIAL IV SCH ×2 (09:05→21:47)
[2017-03-31] MEDS: FLUCONAZOLE 200MG/100ML 100 ML IV SCH ×4 (11:26→15:55)
[2017-03-31] MEDS: METOPROLOL TARTRATE 25 MG TAB PO SCH ×2 (12:46→21:46)
[2017-03-31 15:14] LABS: INR 0.92 (0.9-1.15)
[2017-03-31] MEDS ORDERED: LIDOCAINE 1% HCL (LOCAL ANESTH.) INJ 20ML MDV ONE (17:50)
[2017-03-31] MEDS ORDERED: LIDOCAINE 2%HCL (LOCAL ANESTH.) INJ 20ML MDV ONE (17:50)
[2017-03-31 20:52] LABS: Protein, CSF 234.4 mg/dL (15-45)
[2017-03-31] MEDS: VANCOMYCIN 1,500 MG in D5W 5% 250 ML IV SCH (21:45)
[2017-03-31 22:43] LABS: CSF White Blood Cells 1 CUMM (0-5)
[2017-04-01] VITALS (52 sets, daily range): BP systolic 91–172; BP diastolic 6–110
[2017-04-01] MEDS: PROPOFOL 100 ML IV SCH ×3 (00:37→06:10)
[2017-04-01] MEDS: D5W 5% IV SCH ×3 (00:38→17:14)
[2017-04-01] MEDS: ACYCLOVIR SOD IV SCH ×3 (00:38→17:14)
[2017-04-01] MEDS: FREE WATER GT SCH ×5 (02:00→21:54)
[2017-04-01] MEDS ORDERED: DEXTROSE 50% SYRINGE 0 ML IV ONE (03:07)
[2017-04-01 03:36] LABS: Hematocrit 26.8 % (41.0-53.0); Hemoglobin 9.1 g/dL (13.5-17.5); Mean Corpuscular Hemoglobin 31.1 pg (28.0-32.0); Mean Corpuscular Hgb Conc. 33.8 g/dL (32.0-36.0); Platelet Count (auto) 176 10^3/uL (140-450); Red Blood Cells 2.92 10^6/uL (4.5-5.90); Red Cell Distribution Width 16.2 % (11.8-14.3); White Blood Cell 9.1 10^3/uL (4.4-10.8)
[2017-04-01 03:56] LABS: Basophils % (manual) 0 (0.0-2.0); Blast Cells 0; Reactive Lymphocytes 0
[2017-04-01 05:16] LABS: Band Neutrophils % (manual) 14; Eosinophils % (manual) 2 (0-7); Lymphocytes % (manual) 13 (10.0-50.0); Metamyelocytes % 8; Monocytes % (manual) 4 (0-12); Myelocytes % 5; Promyelocytes % 1
[2017-04-01] MEDS: METOCLOPRAMIDE HCL 10 MG TAB PO SCH ×3 (06:09→21:54)
[2017-04-01 07:17] LABS: Albumin 1.5 g/dL (3.4-5.0); Calcium 8.4 mg/dL (8.5-10.1); Potassium 3.9 mmol/L (3.5-5.1)
[2017-04-01 07:22] LABS: BUN/Creatinine Ratio 33.3; Bilirubin, Total 0.6 mg/dL (0.2-1.0); Total Protein 5.4 g/dL (6.4-8.2)
[2017-04-01] MEDS: SODIUM CHLOR 0.9% PF (SALINE LOCK) 10ML VIAL IV SCH ×2 (10:00→21:54)
[2017-04-01] MEDS: PRO-STAT 64 30ML GT SCH ×2 (10:00→21:54)
[2017-04-01] MEDS: VANCOMYCIN 1,500 MG in D5W 5% 250 ML IV SCH ×2 (10:30→21:54)
[2017-04-01] MEDS: FLUCONAZOLE 200MG/100ML 100 ML IV SCH ×4 (11:30→16:20)
[2017-04-01] MEDS: METOPROLOL TARTRATE 25 MG TAB PO SCH ×2 (14:50→21:54)
[2017-04-01] MEDS: Fibersource Hn 1 Liter GT SCH (15:14)
[2017-04-01] MEDS: LABETALOL HCL 5 MG/ML ML 20ML VIAL IV PRN (17:13)
[2017-04-01] MEDS: ACETAMINOPHEN 650 mg PER 20 mL UD GT PRN (17:52)
[2017-04-01] MEDS: fentaNYL Drip 2500mCg/250mlNS 250 ML IV SCH (19:30)
[2017-04-01] MEDS: MIDAZOLAM DRIP 50 mg/50mL 50 ML IV SCH (21:37)
[2017-04-02] VITALS (57 sets, daily range): BP systolic 91–189; BP diastolic 45–106
[2017-04-02] MEDS: D5W 5% IV SCH ×2 (01:08→08:09)
[2017-04-02] MEDS: ACYCLOVIR SOD IV SCH ×2 (01:08→08:09)
[2017-04-02] MEDS: FREE WATER GT SCH ×5 (02:00→22:20)
[2017-04-02 03:46] LABS: Hematocrit 27.4 % (41.0-53.0); Mean Corpuscular Hemoglobin 31.1 pg (28.0-32.0); Mean Corpuscular Volume 94.1 fL (80.0-100.0); Platelet Count (auto) 170 10^3/uL (140-450); Red Blood Cells 2.91 10^6/uL (4.5-5.90); Red Cell Distribution Width 16.6 % (11.8-14.3); White Blood Cell 10.3 10^3/uL (4.4-10.8)
[2017-04-02 03:53] LABS: Basophils % (manual) 0 (0.0-2.0); Reactive Lymphocytes 0
[2017-04-02 03:54] LABS: Blast Cells 0
[2017-04-02 04:06] LABS: Albumin 1.5 g/dL (3.4-5.0); BUN/Creatinine Ratio 32.5; Calcium 8.2 mg/dL (8.5-10.1); Potassium 4.5 mmol/L (3.5-5.1)
[2017-04-02 04:09] LABS: Bilirubin, Total 0.5 mg/dL (0.2-1.0); Total Protein 5.5 g/dL (6.4-8.2)
[2017-04-02 04:19] LABS: Band Neutrophils % (manual) 12; Eosinophils % (manual) 3 (0-7); Lymphocytes % (manual) 10 (10.0-50.0); Metamyelocytes % 11; Monocytes % (manual) 8 (0-12); Myelocytes % 2; Promyelocytes % 1
[2017-04-02] MEDS: METOCLOPRAMIDE HCL 10 MG TAB PO SCH ×3 (06:01→22:21)
[2017-04-02] MEDS: ACETAMINOPHEN 650 mg PER 20 mL UD GT PRN ×3 (08:10→23:30)
[2017-04-02] MEDS: SODIUM CHLOR 0.9% PF (SALINE LOCK) 10ML VIAL IV SCH ×2 (08:10→22:20)
[2017-04-02] MEDS: fentaNYL Drip 2500mCg/250mlNS 250 ML IV SCH (08:57)
[2017-04-02] MEDS: VANCOMYCIN 1,500 MG in D5W 5% 250 ML IV SCH (10:00)
[2017-04-02] MEDS: LORazepam 0.5 MG TAB PO SCH ×3 (10:00→22:20)
[2017-04-02] MEDS: PRO-STAT 64 30ML GT SCH ×2 (10:00→16:00)
[2017-04-02] MEDS: FLUCONAZOLE 200MG/100ML 100 ML IV SCH ×4 (10:28→14:48)
[2017-04-02] MEDS: METOPROLOL TARTRATE 25 MG TAB PO SCH ×2 (10:29→22:20)
[2017-04-02] MEDS: MIDAZOLAM DRIP 50 mg/50mL 50 ML IV SCH (21:37)
[2017-04-02] MEDS: PROPOFOL 100 ML IV SCH (23:05)
[2017-04-03] VITALS (82 sets, daily range): BP systolic 12–155; BP diastolic 34–112
[2017-04-03] MEDS: fentaNYL Drip 2500mCg/250mlNS 250 ML IV SCH (00:45)
[2017-04-03] MEDS: D5W 5% IV SCH ×3 (01:01→17:21)
[2017-04-03] MEDS: ACYCLOVIR SOD IV SCH ×3 (01:01→17:21)
[2017-04-03] MEDS: FREE WATER GT SCH ×6 (01:37→21:37)
[2017-04-03 04:07] LABS: Hematocrit 28.3 % (41.0-53.0); Hemoglobin 9.3 g/dL (13.5-17.5); Mean Corpuscular Hgb Conc. 32.9 g/dL (32.0-36.0); Mean Corpuscular Volume 94.3 fL (80.0-100.0); Platelet Count (auto) 183 10^3/uL (140-450); Red Blood Cells 3.01 10^6/uL (4.5-5.90); Red Cell Distribution Width 16.7 % (11.8-14.3); White Blood Cell 9.7 10^3/uL (4.4-10.8)
[2017-04-03 04:10] LABS: Basophils % (manual) 0 (0.0-2.0); Blast Cells 0; Promyelocytes % 0; Reactive Lymphocytes 0
[2017-04-03 04:26] LABS: Albumin 1.5 g/dL (3.4-5.0); BUN/Creatinine Ratio 31.8; Calcium 8.3 mg/dL (8.5-10.1); Potassium 4.4 mmol/L (3.5-5.1)
[2017-04-03 04:28] LABS: Bilirubin, Total 0.7 mg/dL (0.2-1.0); Total Protein 5.8 g/dL (6.4-8.2)
[2017-04-03 05:46] LABS: Band Neutrophils % (manual) 7; Eosinophils % (manual) 2 (0-7); Lymphocytes % (manual) 15 (10.0-50.0); Metamyelocytes % 2; Monocytes % (manual) 7 (0-12); Myelocytes % 2
[2017-04-03] MEDS: METOCLOPRAMIDE HCL 10 MG TAB PO SCH ×3 (06:00→21:36)
[2017-04-03] MEDS: ACETAMINOPHEN 650 mg PER 20 mL UD GT PRN ×3 (06:00→20:00)
[2017-04-03] MEDS: LORazepam 0.5 MG TAB PO SCH ×3 (06:00→21:36)
[2017-04-03] MEDS: METOPROLOL TARTRATE 25 MG TAB PO SCH ×2 (09:22→21:36)
[2017-04-03] MEDS: FLUCONAZOLE 200MG/100ML 100 ML IV SCH ×4 (09:22→14:55)
[2017-04-03] MEDS: SODIUM CHLOR 0.9% PF (SALINE LOCK) 10ML VIAL IV SCH ×2 (09:25→21:36)
[2017-04-03] MEDS: PRO-STAT 64 30ML GT SCH ×2 (09:26→21:36)
[2017-04-03] MEDS ORDERED: VANCOMYCIN 1,500 MG in D5W 5% 250 ML IV SCH (20:00)
[2017-04-03] MEDS: PROPOFOL 100 ML IV SCH (20:37)
[2017-04-03] MEDS: MIDAZOLAM DRIP 50 mg/50mL 50 ML IV SCH (21:32)
[2017-04-04] VITALS (103 sets, daily range): BP systolic 86–179; BP diastolic 41–108
[2017-04-04] MEDS: ACYCLOVIR SOD IV SCH ×3 (01:06→17:15)
[2017-04-04] MEDS: D5W 5% IV SCH ×3 (01:06→17:15)
[2017-04-04] MEDS: FREE WATER GT SCH ×6 (02:00→21:07)
[2017-04-04] MEDS: ACETAMINOPHEN 650 mg PER 20 mL UD GT PRN ×4 (03:06→21:30)
[2017-04-04 04:32] LABS: BUN/Creatinine Ratio 31.5; Calcium 8.5 mg/dL (8.5-10.1); Potassium 4.1 mmol/L (3.5-5.1)
[2017-04-04] MEDS: LORazepam 0.5 MG TAB PO SCH ×3 (05:44→21:08)
[2017-04-04] MEDS: METOCLOPRAMIDE HCL 10 MG TAB PO SCH ×3 (05:44→21:07)
[2017-04-04] MEDS: FLUCONAZOLE 200MG/100ML 100 ML IV SCH ×4 (08:16→16:39)
[2017-04-04] MEDS: MIDAZOLAM DRIP 50 mg/50mL 50 ML IV SCH ×2 (08:24→09:43)
[2017-04-04] MEDS: fentaNYL Drip 2500mCg/250mlNS 250 ML IV SCH ×2 (08:57→14:21)
[2017-04-04] MEDS: METOPROLOL TARTRATE 25 MG TAB PO SCH ×2 (09:42→21:08)
[2017-04-04] MEDS: PRO-STAT 64 30ML GT SCH ×2 (11:08→21:07)
[2017-04-04] MEDS: SODIUM CHLOR 0.9% PF (SALINE LOCK) 10ML VIAL IV SCH ×2 (11:08→21:07)
[2017-04-04] MEDS: VANCOMYCIN 1,500 MG in D5W 5% 250 ML IV SCH (12:59)
[2017-04-04] MEDS: PROPOFOL 100 ML IV SCH (17:00)
[2017-04-05] VITALS (93 sets, daily range): BP systolic 81–140; BP diastolic 27–112
[2017-04-05] MEDS: D5W 5% IV SCH ×3 (00:10→17:55)
[2017-04-05] MEDS: ACYCLOVIR SOD IV SCH ×3 (00:10→17:55)
[2017-04-05] MEDS: FREE WATER GT SCH ×6 (02:00→21:53)
[2017-04-05 04:04] LABS: Hematocrit 27.2 % (41.0-53.0); Hemoglobin 9.2 g/dL (13.5-17.5); Mean Corpuscular Hemoglobin 31.3 pg (28.0-32.0); Mean Corpuscular Hgb Conc. 33.7 g/dL (32.0-36.0); Mean Corpuscular Volume 92.9 fL (80.0-100.0); Platelet Count (auto) 168 10^3/uL (140-450); Red Blood Cells 2.93 10^6/uL (4.5-5.90); Red Cell Distribution Width 16.8 % (11.8-14.3); White Blood Cell 6.5 10^3/uL (4.4-10.8)
[2017-04-05 04:13] LABS: Basophils % (manual) 0 (0.0-2.0); Blast Cells 0; Reactive Lymphocytes 0
[2017-04-05 04:22] LABS: Albumin 1.5 g/dL (3.4-5.0); BUN/Creatinine Ratio 28.6; Calcium 8.8 mg/dL (8.5-10.1)
[2017-04-05 04:25] LABS: Bilirubin, Total 0.6 mg/dL (0.2-1.0); Total Protein 5.6 g/dL (6.4-8.2)
[2017-04-05 04:48] LABS: Band Neutrophils % (manual) 8; Eosinophils % (manual) 1 (0-7); Lymphocytes % (manual) 13 (10.0-50.0); Metamyelocytes % 6; Monocytes % (manual) 10 (0-12); Myelocytes % 1; Promyelocytes % 2
[2017-04-05] MEDS: METOCLOPRAMIDE HCL 10 MG TAB PO SCH ×3 (05:23→21:53)
[2017-04-05] MEDS: LORazepam 0.5 MG TAB PO SCH ×3 (05:24→21:53)
[2017-04-05] MEDS: ACETAMINOPHEN 650 mg PER 20 mL UD GT PRN ×3 (08:30→22:31)
[2017-04-05] MEDS: FLUCONAZOLE 200MG/100ML 100 ML IV SCH ×4 (08:58→15:50)
[2017-04-05] MEDS: METOPROLOL TARTRATE 25 MG TAB PO SCH ×2 (10:01→21:53)
[2017-04-05] MEDS: SODIUM CHLOR 0.9% PF (SALINE LOCK) 10ML VIAL IV SCH ×2 (10:02→21:53)
[2017-04-05] MEDS: PRO-STAT 64 30ML GT SCH ×2 (10:02→21:53)
[2017-04-05] MEDS: PROPOFOL 100 ML IV SCH (13:23)
[2017-04-05] MEDS: MIDAZOLAM DRIP 50 mg/50mL 50 ML IV SCH (21:37)
[2017-04-06] VITALS (78 sets, daily range): BP systolic 95–164; BP diastolic 23–109
[2017-04-06] MEDS: VANCOMYCIN 1,500 MG in D5W 5% 250 ML IV SCH ×2
[2017-04-06] MEDS: ACYCLOVIR SOD IV SCH ×3 (01:03→18:53)
[2017-04-06] MEDS: D5W 5% IV SCH ×3 (01:03→18:53)
[2017-04-06] MEDS: FREE WATER GT SCH ×6 (01:48→22:00)
[2017-04-06] MEDS: Fibersource Hn 1 Liter GT SCH (02:18)
[2017-04-06 03:48] LABS: Hematocrit 26.2 % (41.0-53.0); Hemoglobin 8.9 g/dL (13.5-17.5); Mean Corpuscular Hemoglobin 31.8 pg (28.0-32.0); Mean Corpuscular Volume 93.4 fL (80.0-100.0); Platelet Count (auto) 157 10^3/uL (140-450); Red Blood Cells 2.81 10^6/uL (4.5-5.90); Red Cell Distribution Width 16.7 % (11.8-14.3); White Blood Cell 5.8 10^3/uL (4.4-10.8)
[2017-04-06 03:59] LABS: BUN/Creatinine Ratio 28.6; Calcium 8.6 mg/dL (8.5-10.1); Potassium 3.5 mmol/L (3.5-5.1)
[2017-04-06 04:04] LABS: Basophils % (manual) 0 (0.0-2.0); Blast Cells 0; Eosinophils % (manual) 0 (0-7); Reactive Lymphocytes 0
[2017-04-06 04:50] LABS: Band Neutrophils % (manual) 8; Lymphocytes % (manual) 18 (10.0-50.0); Metamyelocytes % 2; Monocytes % (manual) 11 (0-12); Myelocytes % 1; Promyelocytes % 2
[2017-04-06] MEDS: METOCLOPRAMIDE HCL 10 MG TAB PO SCH ×3 (05:34→22:59)
[2017-04-06] MEDS: LORazepam 0.5 MG TAB PO SCH (05:34)
[2017-04-06] MEDS: ACETAMINOPHEN 650 mg PER 20 mL UD GT PRN ×2 (06:19→15:04)
[2017-04-06] MEDS: PROPOFOL 100 ML IV SCH (09:46)
[2017-04-06] MEDS: METOPROLOL TARTRATE 25 MG TAB PO SCH ×2 (10:15→23:00)
[2017-04-06] MEDS: PRO-STAT 64 30ML GT SCH ×2 (10:15→22:00)
[2017-04-06] MEDS: FLUCONAZOLE 200MG/100ML 100 ML IV SCH ×4 (10:15→15:04)
[2017-04-06 11:08] LABS: Cryptococcus Antigen CSF Negative (Negative)
[2017-04-06] MEDS: SODIUM CHLOR 0.9% PF (SALINE LOCK) 10ML VIAL IV SCH ×2 (11:32→22:59)
[2017-04-06] MEDS: MORPHINE SULFATE 4 MG/ML SYR/VIAL IV PRN ×2 (13:47→19:55)
[2017-04-06] MEDS: MIDAZOLAM DRIP 50 mg/50mL 50 ML IV SCH (21:37)
[2017-04-07] VITALS (40 sets, daily range): BP systolic 100–178; BP diastolic 53–113
[2017-04-07] MEDS: ACYCLOVIR SOD IV SCH ×3 (01:13→17:54)
[2017-04-07] MEDS: D5W 5% IV SCH ×3 (01:13→17:54)
[2017-04-07] MEDS: ACETAMINOPHEN 650 mg PER 20 mL UD PO PRN ×3 (01:15→21:07)
[2017-04-07] MEDS: FREE WATER GT SCH ×6 (01:50→22:00)
[2017-04-07] MEDS: MORPHINE SULFATE 4 MG/ML SYR/VIAL IV PRN ×3 (05:00→14:19)
[2017-04-07] MEDS: METOCLOPRAMIDE HCL 10 MG TAB PO SCH ×2 (06:00→15:00)
[2017-04-07] MEDS: PROPOFOL 100 ML IV SCH (06:09)
[2017-04-07 07:45] LABS: Hematocrit 27.8 % (41.0-53.0); Hemoglobin 9.3 g/dL (13.5-17.5); Mean Corpuscular Hemoglobin 31.3 pg (28.0-32.0); Mean Corpuscular Hgb Conc. 33.5 g/dL (32.0-36.0); Mean Corpuscular Volume 93.3 fL (80.0-100.0); Platelet Count (auto) 137 10^3/uL (140-450); Red Blood Cells 2.98 10^6/uL (4.5-5.90); Red Cell Distribution Width 17.4 % (11.8-14.3); White Blood Cell 5.4 10^3/uL (4.4-10.8)
[2017-04-07 07:57] LABS: BUN/Creatinine Ratio 23.1; Calcium 8.7 mg/dL (8.5-10.1); Potassium 3.5 mmol/L (3.5-5.1)
[2017-04-07 07:59] LABS: Basophils % (manual) 0 (0.0-2.0); Blast Cells 0; Metamyelocytes % 0; Myelocytes % 0; Promyelocytes % 0; Reactive Lymphocytes 0
[2017-04-07] MEDS: PRO-STAT 64 30ML GT SCH (09:03)
[2017-04-07] MEDS: Fibersource Hn 1 Liter GT SCH (09:16)
[2017-04-07] MEDS: METOPROLOL TARTRATE 50 MG TAB PO SCH ×2 (12:10→21:05)
[2017-04-07] MEDS: VANCOMYCIN 1,500 MG in D5W 5% 250 ML IV SCH (12:10)
[2017-04-07] MEDS: SODIUM CHLOR 0.9% PF (SALINE LOCK) 10ML VIAL IV SCH (12:11)
[2017-04-07] MEDS: FLUCONAZOLE 200MG/100ML 100 ML IV SCH (12:11)
[2017-04-07] MEDS: LABETALOL HCL 5 MG/ML ML 20ML VIAL IV PRN (12:11)
[2017-04-07 15:17] LABS: Band Neutrophils % (manual) 1; Eosinophils % (manual) 5 (0-7); Lymphocytes % (manual) 21 (10.0-50.0); Monocytes % (manual) 8 (0-12)
[2017-04-07] MEDS: NITROGLYCERIN 50MG/250ML 250 ML IV SCH (19:30)
[2017-04-07] MEDS: LISINOPRIL 20 MG TAB PO SCH (21:06)
[2017-04-07] MEDS: MIDAZOLAM DRIP 50 mg/50mL 50 ML IV SCH (21:37)
[2017-04-08] VITALS (86 sets, daily range): BP systolic 106–188; BP diastolic 57–112
[2017-04-08] MEDS: D5W 5% IV SCH ×3 (01:00→18:40)
[2017-04-08] MEDS: ACYCLOVIR SOD IV SCH ×3 (01:00→18:40)
[2017-04-08] MEDS: FREE WATER GT SCH ×6 (02:00→22:00)
[2017-04-08] MEDS: FLUCONAZOLE 200MG/100ML 100 ML IV SCH (10:37)
[2017-04-08] MEDS: METOPROLOL TARTRATE 50 MG TAB PO SCH ×2 (10:38→22:00)
[2017-04-08] MEDS: LISINOPRIL 20 MG TAB PO SCH ×2 (10:39→22:00)
[2017-04-08] MEDS ORDERED: cloNIDine 0.3 mg/24hr 7DAY PATCH TD SCH (11:30)
[2017-04-08] MEDS: ACETAMINOPHEN 650 mg PER 20 mL UD PO PRN ×2 (13:00→21:12)
[2017-04-08] MEDS: VANCOMYCIN 1,500 MG in D5W 5% 250 ML IV SCH (15:00)
[2017-04-08] MEDS: NITROGLYCERIN 50MG/250ML 250 ML IV SCH (19:30)
[2017-04-08] MEDS: MORPHINE SULFATE 4 MG/ML SYR/VIAL IV PRN (21:12)
[2017-04-08] MEDS: MIDAZOLAM DRIP 50 mg/50mL 50 ML IV SCH (21:37)
[2017-04-09] VITALS (42 sets, daily range): BP systolic 97–160; BP diastolic 56–97
[2017-04-09] MEDS: ACYCLOVIR SOD IV SCH ×3 (01:00→18:30)
[2017-04-09] MEDS: D5W 5% IV SCH ×3 (01:00→18:30)
[2017-04-09 03:49] LABS: Hematocrit 23.6 % (41.0-53.0); Mean Corpuscular Hgb Conc. 33.8 g/dL (32.0-36.0)
[2017-04-09 03:51] LABS: Mean Corpuscular Hemoglobin 31.7 pg (28.0-32.0); Mean Corpuscular Volume 93.7 fL (80.0-100.0); Platelet Count (auto) 121 10^3/uL (140-450); Red Blood Cells 2.52 10^6/uL (4.5-5.90); Red Cell Distribution Width 17.3 % (11.8-14.3); White Blood Cell 4.9 10^3/uL (4.4-10.8)
[2017-04-09 04:02] LABS: Potassium 3.2 mmol/L (3.5-5.1)
[2017-04-09 04:08] LABS: Basophils % (manual) 0 (0.0-2.0); Blast Cells 0; Promyelocytes % 0; Reactive Lymphocytes 0
[2017-04-09 04:14] LABS: Albumin 1.6 g/dL (3.4-5.0); BUN/Creatinine Ratio 31.9; Calcium 8.1 mg/dL (8.5-10.1)
[2017-04-09 04:17] LABS: Bilirubin, Total 0.5 mg/dL (0.2-1.0); Total Protein 5.6 g/dL (6.4-8.2)
[2017-04-09 04:38] LABS: Band Neutrophils % (manual) 4; Eosinophils % (manual) 2 (0-7); Lymphocytes % (manual) 15 (10.0-50.0); Metamyelocytes % 1; Monocytes % (manual) 8 (0-12); Myelocytes % 1
[2017-04-09] MEDS: MORPHINE SULFATE 4 MG/ML SYR/VIAL IV PRN ×2 (07:00→19:08)
[2017-04-09] MEDS: METOPROLOL TARTRATE 50 MG TAB PO SCH ×2 (11:04→22:16)
[2017-04-09] MEDS: LISINOPRIL 20 MG TAB PO SCH ×2 (11:05→22:16)
[2017-04-09] MEDS: FLUCONAZOLE 200MG/100ML 100 ML IV SCH (14:00)
[2017-04-09] MEDS: VANCOMYCIN 1,500 MG in D5W 5% 250 ML IV SCH (16:30)
[2017-04-09] MEDS: NITROGLYCERIN 50MG/250ML 250 ML IV SCH (19:30)
[2017-04-09] MEDS: ACETAMINOPHEN 650 mg PER 20 mL UD PO PRN (21:10)
[2017-04-09] MEDS: MIDAZOLAM DRIP 50 mg/50mL 50 ML IV SCH (21:10)
[2017-04-10] VITALS (34 sets, daily range): BP systolic 132–173; BP diastolic 78–125
[2017-04-10] MEDS: METOPROLOL TARTRATE 50 MG TAB PO SCH ×2 (00:32→22:00)
[2017-04-10] MEDS: ACYCLOVIR SOD IV SCH ×3 (00:42→17:25)
[2017-04-10] MEDS: D5W 5% IV SCH ×3 (00:42→17:25)
[2017-04-10] MEDS: MORPHINE SULFATE 4 MG/ML SYR/VIAL IV PRN ×4 (02:53→23:30)
[2017-04-10 04:25] LABS: Basophils # (auto) 0 uL; Basophils % (auto) 0.9 % (0.0-2.0); Eosinophils # (auto) 0.3 uL; Eosinophils % (auto) 4.8 % (0.0-7.0); Hematocrit 26.1 % (41.0-53.0); Hemoglobin 8.8 g/dL (13.5-17.5); Lymphocytes # (auto) 0.9 uL; Lymphocytes % (auto) 16.5 % (10.0-50.0); Mean Corpuscular Hemoglobin 31.4 pg (28.0-32.0); Mean Corpuscular Hgb Conc. 33.6 g/dL (32.0-36.0); Mean Corpuscular Volume 93.4 fL (80.0-100.0); Monocytes # (auto) 0.6 uL; Monocytes % (auto) 10.7 % (0.0-12.0); Neutrophils # (auto) 3.6 uL; Neutrophils % (auto) 67.1 % (37.0-80.0); Platelet Count (auto) 139 10^3/uL (140-450); Red Cell Distribution Width 17.8 % (11.8-14.3); White Blood Cell 5.4 10^3/uL (4.4-10.8)
[2017-04-10 04:40] LABS: Albumin 1.6 g/dL (3.4-5.0); BUN/Creatinine Ratio 26.9; Bilirubin, Total 0.7 mg/dL (0.2-1.0); Calcium 8.5 mg/dL (8.5-10.1); Potassium 3.3 mmol/L (3.5-5.1)
[2017-04-10] MEDS ORDERED: POTASSIUM CHLORIDE 40 MEQ, LIDOCAINE 1% (LOCAL ANESTH.) 4 ML in SODIUM CHL 0.9% 100 ML IV ONE (09:00)
[2017-04-10] MEDS: ACETAMINOPHEN 650 mg PER 20 mL UD PO PRN ×2 (09:20→18:21)
[2017-04-10] MEDS: LISINOPRIL 20 MG TAB PO SCH ×2 (10:23→22:00)
[2017-04-10] MEDS: FLUCONAZOLE 200MG/100ML 100 ML IV SCH (10:25)
[2017-04-10] MEDS: VANCOMYCIN 1,500 MG in D5W 5% 250 ML IV SCH (12:02)
[2017-04-10] MEDS ORDERED: DILTIAZEM HCL 180MG ER CAP PO ONE (16:30)
[2017-04-11] VITALS (16 sets, daily range): BP systolic 131–161; BP diastolic 67–93
[2017-04-11] MEDS: D5W 5% IV SCH (01:00)
[2017-04-11] MEDS: ACYCLOVIR SOD IV SCH (01:00)
[2017-04-11] MEDS ORDERED: LABETALOL HCL 5 MG/ML ML 20ML VIAL IV ONE (09:15)
== END 2017-04-11 10:35 | disposition short-term general hospital (02) | DRG 5 ==
LOC: ER 18:51 → EDBD 18:51 → TELE 18:52 → ICU WEST 03-01 11:42
PROVIDERS: ADMIT Nurse Practitioner Family; ATTEND Internal Medicine
PROC: 5A1955Z Respiratory Ventilation, Greater than 96 Consecutive Hours (ICD-10-PCS; principal; 2017-02-28)
PROC: 02HV33Z Insertion of Infusion Device into Superior Vena Cava, Percutaneous Approach (ICD-10-PCS; 2017-03-02)
PROC: 0BH17EZ Insertion of Endotracheal Airway into Trachea, Via Natural or Artificial Opening (ICD-10-PCS; 2017-03-16)
PROC: 0BCB8ZZ Extirpation of Matter from Left Lower Lobe Bronchus, Via Natural or Artificial Opening Endoscopic (ICD-10-PCS; 2017-03-16)
PROC: 0BC58ZZ Extirpation of Matter from Right Middle Lobe Bronchus, Via Natural or Artificial Opening Endoscopic (ICD-10-PCS; 2017-03-16)
PROC: 0BC68ZZ Extirpation of Matter from Right Lower Lobe Bronchus, Via Natural or Artificial Opening Endoscopic (ICD-10-PCS; 2017-03-16)
PROC: 0B110F4 Bypass Trachea to Cutaneous with Tracheostomy Device, Open Approach (ICD-10-PCS; 2017-03-24)
DX: B20 Human immunodeficiency virus [HIV] disease (principal); N17.0 Acute kidney failure with tubular necrosis; B37.1 Pulmonary candidiasis; I21.4 Non-ST elevation (NSTEMI) myocardial infarction; E43 Unspecified severe protein-calorie malnutrition; G92 Toxic encephalopathy; J13 Pneumonia due to Streptococcus pneumoniae; A40.3 Sepsis due to Streptococcus pneumoniae; J96.01 Acute respiratory failure with hypoxia; G93.1 Anoxic brain damage, not elsewhere classified; E66.01 Morbid (severe) obesity due to excess calories; E87.0 Hyperosmolality and hypernatremia; Z99.11 Dependence on respirator [ventilator] status; B19.20 Unspecified viral hepatitis C without hepatic coma; B95.3 Streptococcus pneumoniae as the cause of diseases classified elsewhere; E11.22 Type 2 diabetes mellitus with diabetic chronic kidney disease; E83.51 Hypocalcemia; E87.1 Hypo-osmolality and hyponatremia; E87.6 Hypokalemia; F10.10 Alcohol abuse, uncomplicated; F14.10 Cocaine abuse, uncomplicated; Y92.89 Other specified places as the place of occurrence of the external cause; X58.XXXA Exposure to other specified factors, initial encounter; Y93.89 Activity, other specified; T17.590A Other foreign object in bronchus causing asphyxiation, initial encounter; F17.210 Nicotine dependence, cigarettes, uncomplicated; F32.9 Major depressive disorder, single episode, unspecified; I13.0 Hypertensive heart and chronic kidney disease with heart failure and stage 1 through stage 4 chronic kidney disease, or unspecified chronic kidney disease; I25.10 Atherosclerotic heart disease of native coronary artery without angina pectoris; I42.7 Cardiomyopathy due to drug and external agent; I50.9 Heart failure, unspecified; F41.9 Anxiety disorder, unspecified; I67.2 Cerebral atherosclerosis; J44.0 Chronic obstructive pulmonary disease with (acute) lower respiratory infection; J44.1 Chronic obstructive pulmonary disease with (acute) exacerbation; N18.9 Chronic kidney disease, unspecified; Z79.899 Other long term (current) drug therapy; I25.2 Old myocardial infarction; Z87.01 Personal history of pneumonia (recurrent); Z91.19 Patient's noncompliance with other medical treatment and regimen; Z90.49 Acquired absence of other specified parts of digestive tract; Z68.42 Body mass index [BMI] 45.0-49.9, adult
CPT/HCPCS: 31500; 31635; 36415; 36569; 36600; 51702; 70450; 70490; 71045; 71250; 76705; 76775; 80048; 80053; 80202; 80307; 81001; 82010; 82040; 82140; 82306; 82570; 82607; 82746; 82784; 82805; 82945; 82962; 83520; 83605; 83735; 83880; 84100; 84157; 84300; 84443; 84478; 84484; 84550; 85007; 85025; 85027; 85379; 85610; 85652; 85730; 86160; 86256; 86334; 86335; 86360; 86592; 86701; 86703; 86803; 87040; 87070; 87077; 87081; 87086; 87186; 87205; 87340; 87400; 87493; 87529; 87899; 89051; 93005; 93306; 94002; 94003; 94640; 95819; 96361; 96365; 96375; 99291; C9113; J0171; J0330; J0610; J0690; J1265; J1450; J1815; J2001; J2248; J2250; J2704; J3010; J3480; J3490; J7042; J7060; Q9956